=== PATIENT | female | born 1960 | race Caucasian/White ===

== ENCOUNTER → 2018-05-16 07:20 | Outpatient (CLI) | payer OTHER, MEDICAID, SELFPAY ==
--- NOTE | 2018-05-16 | DI.MRI.S_ITS ---
PROCEDURE: MR HEAD/BRAIN WO/W CON INDICATIONS: MILD COGNATIVE IMPAIRMENT TECHNIQUE: Noncontrast axial T1 spin echo, axial T2 fast spin echo, sagittal and axial FLAIR, coronal T2 fast spin echo, axial gradient echo, axial diffusion and ADC through the brain. After the administration of contrast, axial and coronal 3D VIBE or T1 spin echo with fat saturation through the brain. COMPARISON: [facility], MR, BRAIN W&W/O CONTRAST, 12/22/2013, 17:25. FINDINGS: Image quality: Excellent. CSF Spaces: Basal cisterns are patent. No extra-axial fluid collections. Ventricles are normal in size and shape. Brain: No midline shift. No intracranial bleeds or masses. No abnormal intracranial enhancement. The brainstem appears normal. Diffusion-weighted images demonstrate no acute ischemic insults. No chronic ischemic insults. Normal intravascular flow voids are present. Skull and face: Calvarial marrow is normal in signal. Orbits appear normal. Sinuses: Sinuses and mastoids appear clear. IMPRESSION: No acute intracranial abnormalities. Dictated by: Lavern Barbosa M.D. on 05/16/2018 at 9:35 Approved by: Lavern Barbosa M.D. on 05/16/2018 at 9:38
== END ==
PROVIDERS: Family Provider Internal Medicine; PCP Psychiatry & Neurology Neurology; Visit Provider Internal Medicine
DX: G31.84 Mild cognitive impairment of uncertain or unknown etiology (principal)
CPT/HCPCS: 70553; A9579

== ENCOUNTER 2018-11-10 15:22 | Emergency (ER) | payer OTHER, MEDICAID, SELFPAY ==
[2018-11-10 15:30] VITALS: BP 170/99; PULSE 65; RESP 18; TEMP 37.1; O2SAT 100; BMI 22.6
[2018-11-10 16:30] VITALS: BP 155/94; PULSE 54; O2SAT 100
--- NOTE | 2018-11-10 17:29 | ED.ALLEREA ---
HPI - Allergic Reaction <MANAV Wright - Last Filed: 11/10/18 22:31> General Chief complaint: Allergic Reaction Stated complaint: thinks she is having an allergic reaction to med Time Seen by Provider: 11/10/18 16:27 Source: patient Mode of arrival: ambulatory Limitations: no limitations History of Present Illness HPI narrative: 58-year-old healthy female that is a nonsmoker for complaint of nausea vomiting earlier today. She states she took a levofloxacin tablet that was prescribed to her by her primary care provider in case she got an infection while she was on [place] boat [place] long trips. She states she has never taken it before. She was concerned that she may have been started in ear infection so she took the antibiotic at today. Shortly afterwards she had 1 episode of vomiting. She reports having some pain into her left ear and some sinus congestion. She denies any nausea at this timeframe. She has some pain to her left lower quadrant area. No other concerns or complaints at this timeframe. No urinary symptoms. Last bowel movement was yesterday and was unremarkable. Related Data Allergies Allergy/AdvReac Type Severity Reaction Status Date / Time levofloxacin AdvReac Vomiting Verified 11/10/18 15:38 Review of Systems <MANAV Wright - Last Filed: 11/10/18 22:31> Constitutional Denies chills, Denies fever(s), Denies lethargy and Denies weakness Eyes Denies change in vision, Denies eye discharge, Denies irritation and Denies loss of vision ENT Ears, Nose, Mouth, and Throat: Denies change in voice, Denies neck pain and Denies sore throat Comments: Left ear pain Cardiovascular Denies chest pain, Denies irregular heart rhythm, Denies lightheadedness, Denies palpitations, Denies dyspnea, Denies dyspnea on exertion and Denies orthopnea Respiratory Denies cough, Denies dyspnea, Denies dyspnea on exertion and Denies wheezing Gastrointestinal Comments: Nausea vomiting and abdominal pain Genitourinary Denies hematuria, Denies flank pain, Denies urinary incontinence and Denies urinary urgency Musculoskeletal Denies neck pain Integumentary/Breasts Denies pruritus, Denies erythema, Denies rash and Denies wounds Neurologic Denies confusion, Denies loss of vision and Denies weakness Psychiatric Denies anxiety, Denies confusion, Denies depression, Denies homicidal ideation and Denies suicidal ideation Endocrine Denies palpitations Allergic/Immunologic Denies wheezing PFSH <MANAV Wright - Last Filed: 11/10/18 22:31> Social History Smoking Status: Never smoker Social History Smoking Status: Never smoker Exam <MANAV Wright - Last Filed: 11/10/18 22:31> Initial Vital Signs Initial Vital Signs: Vital Signs Temperature 98.8 F 11/10/18 15:30 Pulse Rate 65 11/10/18 15:30 Respiratory Rate 18 11/10/18 15:30 Blood Pressure 170/99 H 11/10/18 15:30 Pulse Oximetry 100 11/10/18 15:30 Const General: cooperative and well developed Nutritional Appearance: well nourished Orientation: alert, awake, oriented x3 and not confused HENMT Mouth: oral mucosae normal and moist mucous membranes Eyes Conjunctivae: conjunctivae normal Sclera: sclerae normal Pupils: PERRL EOM: EOM intact bilaterally Resp Effort & Inspection: normal respiratory effort, able to speak in complete sentences, no respiratory distress and no use of accessory muscles Auscultation: clear to auscultation bilaterally, no rales, no rhonchi and no wheezes Cardio Rate: regular rate Rhythm: regular rhythm Heart Sounds: no click, no gallops, no murmurs and no rubs Pulses: normal peripheral pulses Skin General: no rashes or lesions noted, No jaundice and No petechiae Neuro General: alert, oriented x3, gait normal and no focal motor deficits Speech: speech normal <Gisell Gonzalez MD - Last Filed: 11/14/18 12:19> Initial Vital Signs Initial Vital Signs: Vital Signs Temperature 98.8 F 11/10/18 15:30 Pulse Rate 65 11/10/18 15:30 Respiratory Rate 18 11/10/18 15:30 Blood Pressure 170/99 H 11/10/18 15:30 Pulse Oximetry 100 11/10/18 15:30 Course <MANAV Wright - Last Filed: 11/10/18 22:31> Orders Ordered: Discontinued Medications Sodium Chloride (Normal Saline 0.9%) 500 mls @ 1,000 mls/hr IV BOLUS ONE Stop: 11/10/18 18:08 Last Infusion: 11/10/18 19:26 Dose: 0 mls/hr Admin: 11/10/18 18:07 Dose: 1,000 mls/hr Vital Signs - 8 hr 11/10/18 15:30 11/10/18 16:30 11/10/18 19:50 Temperature 98.8 F Pulse Rate 65 54 L 61 Respiratory Rate 18 17 Blood Pressure 170/99 H Blood Pressure [Left Arm] 155/94 H 135/89 Pulse Oximetry 100 100 100 <Gisell Gonzalez MD - Last Filed: 11/14/18 12:19> Orders Ordered: Discontinued Medications Sodium Chloride (Normal Saline 0.9%) 500 mls @ 1,000 mls/hr IV BOLUS ONE Stop: 11/10/18 18:08 Last Infusion: 11/10/18 19:26 Dose: 0 mls/hr Admin: 11/10/18 18:07 Dose: 1,000 mls/hr Vital Signs - 8 hr 11/10/18 15:30 11/10/18 16:30 11/10/18 19:50 Temperature 98.8 F Pulse Rate 65 54 L 61 Respiratory Rate 18 17 Blood Pressure 170/99 H Blood Pressure [Left Arm] 155/94 H 135/89 Pulse Oximetry 100 100 100 MDM - Allergic Reaction <MANAV Wright - Last Filed: 11/10/18 22:31> Lab Data Result diagrams: 11/10/18 18:00 11/10/18 18:00 Lab Results 11/10/18 11/10/18 Range/Units 18:00 18:00 WBC 6.4 (4.5-11.0) X10^3/uL RBC 4.14 (4.0-5.2) X10^6/uL Hgb 12.9 (12.0-16.0) g/dL Hct 38.0 (36-46) % MCV 91.9 (80-100) fL MCH 31.2 (26-34) PG MCHC 33.9 (30-36) % RDW 13.0 (11.6-14.8) % Plt Count 85 L (150-400) X10^3/uL Neut % (Auto) 77.1 H (50-75) % Lymph % (Auto) 16.2 L (25-40) % Scurry % (Auto) 4.0 (3-14) % Eos % (Auto) 1.7 L (2-4) % Baso % (Auto) 1.0 (0-2) % Neut # (Auto) 4900 (9448-2152) /uL Lymph # (Auto) 1000 L (1886-9559) /uL Scurry # (Auto) 300 (0-900) /uL Eos # (Auto) 100 (0-450) /uL Baso # (Auto) 100 (0-100) /uL Sodium 138 (137-145) mmol/L Potassium 4.3 (3.4-5.1) mmol/L Chloride 104 (98-107) mmol/L Carbon Dioxide 23 (22-32) mmol/L BUN 20 H (7-17) mg/dL Creatinine 0.70 (0.52-1.04) mg/dL Estimated GFR > 60.0 (>60) mL/min BUN/Creatinine Ratio 28.6 H (6-22) Glucose 97 (70-100) mg/dL Calcium 9.2 (8.4-10.2) mg/dL Total Bilirubin 0.3 (0.2-1.3) mg/dL AST 27 (14-36) IU/L ALT 38 (9-52) IU/L Alkaline Phosphatase 34 L (38-126) U/L Total Protein 7.4 (6.3-8.2) g/dL Albumin 4.2 (3.5-5.0) g/dL Globulin 3.2 (1.7-4.1) g/dL Albumin/Globulin Ratio 1.3 (1.0-2.8) Lipase 72 (23-300) U/L Urine Dip Bedside Urine Glucose Negative Bedside Urine Bilirubin - Negative Bedside Urine Ketone +/- 5 Urine Specific [place] 1.015 Bedside Urine Occult Blood - Negative Bedside Urine pH 7.0 Bedside Urine Protein - Negative Bedside Urine Urobilinogen - Negative Bedside Urine Nitrite - Negative Bedside Urine Leukocytes - Negative Esterase Imaging Data CT scan - abdomen: Radiologist's impression: [address] [address] [address] Scan Report Signed Patient: Bridgette Rich LMR#: [id number] : 2Acct:[id number] Age/Sex: 58 / FDate of Service: 11/10/18 Loc: ED Accession Number: [id number] Procedure: CT abdomen pelvis w con Ordering Provider: Karan Patel PROCEDURE: CT ABDOMEN PELVIS W CON INDICATIONS: Nausea vomiting pain left lower quadrant TECHNIQUE: After the administration of intravenous contrast, 5 mm thick sections acquired from the diaphragm to the symphysis. 5 mm coronal and sagittal reformats were acquired. For radiation dose reduction, the following was used: automated exposure control, adjustment of mA and/or kV according to patient size. COMPARISON: None. FINDINGS: Image quality: Excellent. ABDOMEN: Lung bases: Lung bases are clear. Heart size is normal. Solid organs: Liver is normal in size and enhancement. Gallbladder is somewhat contracted. Biliary system is non dilated. Pancreas enhances normally. Spleen is normal in size and enhancement. No adrenal nodules. Kidneys demonstrate normal size and enhancement, without hydronephrosis. Peritoneum and bowel: Bowel loops demonstrate normal wall thickness and caliber. No free fluid or air. Large fecal debris. Nodes and vessels: No retroperitoneal or mesenteric adenopathy by size criteria. Aorta and inferior vena cava are normal in size. Miscellaneous: No ventral hernias. PELVIS: Genitourinary: Bladder wall thickness is normal. Metallic wires are present and both fallopian tubes. Miscellaneous: No inguinal hernias or adenopathy. Bones: No suspicious bony lesions. No vertebral body compression fractures. IMPRESSION: 1. Large fecal debris. 2. No evidence acute abdominal process. Dictated by: Kelton Naranjo M.D. on 11/10/2018 at 19:08 Approved by: Kelton Naranjo M.D. on 11/10/2018 at 19:11 [facility] Narrative Medical decision making narrative: CT scan of the abdomen was obtained and was negative for any acute findings with exception of some fecal loading. No signs of a bowel obstruction or ileus. Nausea vomiting most likely secondary to taking the Levaquin that. She did not appear to have an ear infection at this time. She is instructed not to take anymore antibiotics. Most likely her discomfort to her ear is due to serous otitis secondary to allergic rhinitis. Continue taking Flonase as prescribed. Follow up with primary care provider later this week for re-evaluation. She is instructed to take plenty of fluids any fiber to help with any constipation. For any worsening symptoms return emergency room. <Gisell Gonzalez MD - Last Filed: 11/14/18 12:19> Lab Data Lab Results 11/10/18 11/10/18 Range/Units 18:00 18:00 WBC 6.4 (4.5-11.0) X10^3/uL RBC 4.14 (4.0-5.2) X10^6/uL Hgb 12.9 (12.0-16.0) g/dL Hct 38.0 (36-46) % MCV 91.9 (80-100) fL MCH 31.2 (26-34) PG MCHC 33.9 (30-36) % RDW 13.0 (11.6-14.8) % Plt Count 85 L (150-400) X10^3/uL Neut % (Auto) 77.1 H (50-75) % Lymph % (Auto) 16.2 L (25-40) % Scurry % (Auto) 4.0 (3-14) % Eos % (Auto) 1.7 L (2-4) % Baso % (Auto) 1.0 (0-2) % Neut # (Auto) 4900 (3196-4886) /uL Lymph # (Auto) 1000 L (0316-3598) /uL Scurry # (Auto) 300 (0-900) /uL Eos # (Auto) 100 (0-450) /uL Baso # (Auto) 100 (0-100) /uL Sodium 138 (137-145) mmol/L Potassium 4.3 (3.4-5.1) mmol/L Chloride 104 (98-107) mmol/L Carbon Dioxide 23 (22-32) mmol/L BUN 20 H (7-17) mg/dL Creatinine 0.70 (0.52-1.04) mg/dL Estimated GFR > 60.0 (>60) mL/min BUN/Creatinine Ratio 28.6 H (6-22) Glucose 97 (70-100) mg/dL Calcium 9.2 (8.4-10.2) mg/dL Total Bilirubin 0.3 (0.2-1.3) mg/dL AST 27 (14-36) IU/L ALT 38 (9-52) IU/L Alkaline Phosphatase 34 L (38-126) U/L Total Protein 7.4 (6.3-8.2) g/dL Albumin 4.2 (3.5-5.0) g/dL Globulin 3.2 (1.7-4.1) g/dL Albumin/Globulin Ratio 1.3 (1.0-2.8) Lipase 72 (23-300) U/L Urine Dip Bedside Urine Glucose Negative Bedside Urine Bilirubin - Negative Bedside Urine Ketone +/- 5 Urine Specific [place] 1.015 Bedside Urine Occult Blood - Negative Bedside Urine pH 7.0 Bedside Urine Protein - Negative Bedside Urine Urobilinogen - Negative Bedside Urine Nitrite - Negative Bedside Urine Leukocytes - Negative Esterase Discharge Plan Departure Patient Disposition: Home Clinical Impression: Adverse reaction to drug Qualifiers: Encounter type: initial encounter Qualified Code(s): T50.905A - Adverse effect of unspecified drugs, medicaments and biological substances, initial encounter Allergic rhinitis Qualifiers: Allergic rhinitis trigger: other Allergic rhinitis seasonality: unspecified Qualified Code(s): J30.89 - Other allergic rhinitis Discharge Date/Time: 11/10/18 19:56 Interventions: ED Discharge Assessment Last Done: 11/10/18 19:56 Instructions: DI for Adverse Drug Reaction -- Allergic Activity Restrictions/Additional Instructions: Nausea vomiting most likely is secondary to the antibiotic use. CT scan of the abdomen shows no acute findings except for some stool loading. Recommended drinking plenty of fluids and using fiber to prevent constipation. Ear pain most likely secondary to seasonal allergies. Continue using Flonase as prescribed. No signs of ear infection is seen today. Use [id number] Tylenol or Motrin as needed for any discomfort. Follow up with her primary care provider. Return emergency room for any worsening symptoms Referrals: Fadumo Harding MD [Primary Care Provider] -
--- NOTE | 2018-11-10 17:40 | DI.CT.S_ITS ---
PROCEDURE: CT ABDOMEN PELVIS W CON INDICATIONS: Nausea vomiting pain left lower quadrant TECHNIQUE: After the administration of intravenous contrast, 5 mm thick sections acquired from the diaphragm to the symphysis. 5 mm coronal and sagittal reformats were acquired. For radiation dose reduction, the following was used: automated exposure control, adjustment of mA and/or kV according to patient size. COMPARISON: None. FINDINGS: Image quality: Excellent. ABDOMEN: Lung bases: Lung bases are clear. Heart size is normal. Solid organs: Liver is normal in size and enhancement. Gallbladder is somewhat contracted. Biliary system is non dilated. Pancreas enhances normally. Spleen is normal in size and enhancement. No adrenal nodules. Kidneys demonstrate normal size and enhancement, without hydronephrosis. Peritoneum and bowel: Bowel loops demonstrate normal wall thickness and caliber. No free fluid or air. Large fecal debris. Nodes and vessels: No retroperitoneal or mesenteric adenopathy by size criteria. Aorta and inferior vena cava are normal in size. Miscellaneous: No ventral hernias. PELVIS: Genitourinary: Bladder wall thickness is normal. Metallic wires are present and both fallopian tubes. Miscellaneous: No inguinal hernias or adenopathy. Bones: No suspicious bony lesions. No vertebral body compression fractures. IMPRESSION: 1. Large fecal debris. 2. No evidence acute abdominal process. Dictated by: Kelton Naranjo M.D. on 11/10/2018 at 19:08 Approved by: Kelton Naranjo M.D. on 11/10/2018 at 19:11
[2018-11-10] MEDS: SODIUM CHLORIDE 0.9% 500 ML 1000 ML IV (18:07)
[2018-11-10 18:20] LABS: Alanine Aminotransferase 38 IU/L (9-52); Albumin 4.2 g/dL (3.5-5.0); Albumin Globulin Ratio 1.3 (1.0-2.8); Alkaline Phosphatase 34 U/L (38-126); Aspartate Aminotransferase 27 IU/L (14-36); BUN Creatinine Ratio 28.6 (6-22); Bilirubin Total 0.3 mg/dL (0.2-1.3); Blood Urea Nitrogen 20 mg/dL (7-17); Calcium 9.2 mg/dL (8.4-10.2); Carbon Dioxide 23 mmol/L (22-32); Chloride 104 mmol/L (98-107); Estimated Glomerular Filt Rate > 60.0 mL/min (>60); Globulin 3.2 g/dL (1.7-4.1); Glucose 97 mg/dL (70-100); HEMOLYSIS 16 (0-50); Lipase 72 U/L (23-300); Potassium 4.3 mmol/L (3.4-5.1); Sodium 138 mmol/L (137-145); Total Protein 7.4 g/dL (6.3-8.2)
[2018-11-10 18:31] LABS: Add Manual Diff / Slide Review NO; Basophils Absolute Auto 100 /uL (0-100); Eosinophils Absolute Auto 100 /uL (0-450); Eosinophils Percent Auto 1.7 % (2-4); Hemoglobin 12.9 g/dL (12.0-16.0); Lymphocytes Absolute Auto 1000 /uL (1100-4500); Lymphocytes Percent Auto 16.2 % (25-40); Mean Corpuscular HGB Conc 33.9 % (30-36); Mean Corpuscular Hemoglobin 31.2 PG (26-34); Mean Corpuscular Volume 91.9 fL (80-100); Monocytes Absolute Auto 300 /uL (0-900); Neutrophils Absolute Auto 4900 /uL (1500-7000); Neutrophils Percent Auto 77.1 % (50-75); Platelet Count 85 X10^3/uL (150-400); Red Blood Cell Count 4.14 X10^6/uL (4.0-5.2); White Blood Cell Count 6.4 X10^3/uL (4.5-11.0)
--- NOTE | 2018-11-10 19:40 | ED_ITS ---
HPI - Allergic Reaction <MANAV Wright - Last Filed: 11/10/18 22:31> General Chief complaint: Allergic Reaction Stated complaint: thinks she is having an allergic reaction to med Time Seen by Provider: 11/10/18 16:27 Source: patient Mode of arrival: ambulatory Limitations: no limitations History of Present Illness HPI narrative: 58-year-old healthy female that is a nonsmoker for complaint of nausea vomiting earlier today. She states she took a levofloxacin tablet that was prescribed to her by her primary care provider in case she got an infection while she was on her boat for long trips. She states she has never taken it before. She was concerned that she may have been started in ear infection so she took the antibiotic at today. Shortly afterwards she had 1 episode of vomi ting. She reports having some pain into her left ear and some sinus congestion. She denies any nausea at this timeframe. She has some pain to her left lower quadrant area. No other concerns or complaints at this timeframe. No urinary symptoms. Last bowel movement was yesterday and was unremarkable. Related Data Allergies Allergy/AdvReac Type Severity Reaction Status Date / Time levofloxacin AdvReac Vomiting Verified 11/10/18 15:38 Review of Systems <MANAV Wright - Last Filed: 11/10/18 22:31> Constitutional Denies chills, Denies fever(s), Denies lethargy and Denies weakness Eyes Denies change in vision, Denies eye discharge, Denies irritation and Denies loss of vision ENT Ears, Nose, Mouth, and Throat: Denies change in voice, Denies neck pain and Denies sore throat Comments: Left ear pain Cardiovascular Denies chest pain, Denies irregular heart rhythm, Denies lightheadedness, Denies palpitations, Denies dyspnea, Denies dyspnea on exertion and Denies orthopnea Respiratory Denies cough, Denies dyspnea, Denies dyspnea on exertion and Denies wheezing Gastrointestinal Comments: Nausea vomiting and abdominal pain Genitourinary Denies hematuria, Denies flank pain, Denies urinary incontinence and Denies urinary urgency Musculoskeletal Denies neck pain Integumentary/Breasts Denies pruritus, Denies erythema, Denies rash and Denies wounds Neurologic Denies confusion, Denies loss of vision and Denies weakness Psychiatric Denies anxiety, Denies confusion, Denies depression, Denies homicidal ideation and Denies suicidal ideation Endocrine Denies palpitations Allergic/Immunologic Denies wheezing PFSH <MANAV Wright - Last Filed: 11/10/18 22:31> Social History Smoking Status: Never smoker Social History Smoking Status: Never smoker Exam <MANAV Wright - Last Filed: 11/10/18 22:31> Initial Vital Signs Initial Vital Signs: Vital Signs Temperature 98.8 F 11/10/18 15:30 Pulse Rate 65 11/10/18 15:30 Respiratory Rate 18 11/10/18 15:30 Blood Pressure 170/99 H 11/10/18 15:30 Pulse Oximetry 100 11/10/18 15:30 Const General: cooperative and well developed Nutritional Appearance: well nourished Orientation: alert, awake, oriented x3 and not confused HENMT Mouth: oral mucosae normal and moist mucous membranes Eyes Conjunctivae: conjunctivae normal Sclera: sclerae normal Pupils: PERRL EOM: EOM intact bilaterally Resp Effort & Inspection: normal respiratory effort, able to speak in complete sentences, no respiratory distress and no use of accessory muscles Auscultation: clear to auscultation bilaterally, no rales, no rhonchi and no wheezes Cardio Rate: regular rate Rhythm: regular rhythm Heart Sounds: no click, no gallops, no murmurs and no rubs Pulses: normal peripheral pulses Skin General: no rashes or lesions noted, No jaundice and No petechiae Neuro General: alert, oriented x3, gait normal and no focal motor deficits Speech: speech normal <Gisell Gonzalez MD - Last Filed: 11/14/18 12:19> Initial Vital Signs Initial Vital Signs: Vital Signs Temperature 98.8 F 11/10/18 15:30 Pulse Rate 65 11/10/18 15:30 Respiratory Rate 18 11/10/18 15:30 Blood Pressure 170/99 H 11/10/18 15:30 Pulse Oximetry 100 11/10/18 15:30 Course <MANAV Wright - Last Filed: 11/10/18 22:31> Orders Ordered: Discontinued Medications Sodium Chloride (Normal Saline 0.9%) 500 mls @ 1,000 mls/hr IV BOLUS ONE Stop: 11/10/18 18:08 Last Infusion: 11/10/18 19:26 Dose: 0 mls/hr Admin: 11/10/18 18:07 Dose: 1,000 mls/hr Vital Signs - 8 hr 11/10/18 15:30 11/10/18 16:30 11/10/18 19:50 Temperature 98.8 F Pulse Rate 65 54 L 61 Respiratory Rate 18 17 Blood Pressure 170/99 H Blood Pressure [Left Arm] 155/94 H 135/89 Pulse Oximetry 100 100 100 <Gisell Gonzalez MD - Last Filed: 11/14/18 12:19> Orders Ordered: Discontinued Medications Sodium Chloride (Normal Saline 0.9%) 500 mls @ 1,000 mls/hr IV BOLUS ONE Stop: 11/10/18 18:08 Last Infusion: 11/10/18 19:26 Dose: 0 mls/hr Admin: 11/10/18 18:07 Dose: 1,000 mls/hr Vital Signs - 8 hr 11/10/18 15:30 11/10/18 16:30 11/10/18 19:50 Temperature 98.8 F Pulse Rate 65 54 L 61 Respiratory Rate 18 17 Blood Pressure 170/99 H Blood Pressure [Left Arm] 155/94 H 135/89 Pulse Oximetry 100 100 100 MDM - Allergic Reaction <MANAV Wright - Last Filed: 11/10/18 22:31> Lab Data Result diagrams: 11/10/18 18:00 11/10/18 18:00 Lab Results 11/10/18 11/10/18 Range/Units 18:00 18:00 WBC 6.4 (4.5-11.0) X10^3/uL RBC 4.14 (4.0-5.2) X10^6/uL Hgb 12.9 (12.0-16.0) g/dL Hct 38.0 (36-46) % MCV 91.9 (80-100) fL MCH 31.2 (26-34) PG MCHC 33.9 (30-36) % RDW 13.0 (11.6-14.8) % Plt Count 85 L (150-400) X10^3/uL Neut % (Auto) 77.1 H (50-75) % Lymph % (Auto) 16.2 L (25-40) % [place] % (Auto) 4.0 (3-14) % Eos % (Auto) 1.7 L (2-4) % Baso % (Auto) 1.0 (0-2) % Neut # (Auto) 4900 (5162-3746) /uL Lymph # (Auto) 1000 L (2788-3469) /uL [place] # (Auto) 300 (0-900) /uL Eos # (Auto) 100 (0-450) /uL Baso # (Auto) 100 (0-100) /uL Sodium 138 (137-145) mmol/L Potassium 4.3 (3.4-5.1) mmol/L Chloride 104 (98-107) mmol/L Carbon Dioxide 23 (22-32) mmol/L BUN 20 H (7-17) mg/dL Creatinine 0.70 (0.52-1.04) mg/dL Estimated GFR > 60.0 (>60) mL/min BUN/Creatinine Ratio 28.6 H (6-22) Glucose 97 (70-100) mg/dL Calcium 9.2 (8.4-10.2) mg/dL Total Bilirubin 0.3 (0.2-1.3) mg/dL AST 27 (14-36) IU/L ALT 38 (9-52) IU/L Alkaline Phosphatase 34 L (38-126) U/L Total Protein 7.4 (6.3-8.2) g/dL Albumin 4.2 (3.5-5.0) g/dL Globulin 3.2 (1.7-4.1) g/dL Albumin/Globulin Ratio 1.3 (1.0-2.8) Lipase 72 (23-300) U/L Urine Dip Bedside Urine Glucose Negative Bedside Urine Bilirubin - Negative Bedside Urine Ketone +/- 5 Urine Specific [place] 1.015 Bedside Urine Occult Blood - Negative Bedside Urine pH 7.0 Bedside Urine Protein - Negative Bedside Urine Urobilinogen - Negative Bedside Urine Nitrite - Negative Bedside Urine Leukocytes - Negative Esterase Imaging Data CT scan - abdomen: Radiologist's impression: [address] [address] [address] Scan Report Signed Patient: Bridgette Rich LMR#: [id number] : 2Acct:[id number] Age/Sex: 58 / FDate of Service: 11/10/18 Loc: ED Accession Number: [id number] Procedure: CT abdomen pelvis w con Ordering Provider: Karan Patel PROCEDURE: CT ABDOMEN PELVIS W CON INDICATIONS: Nausea vomiting pain left lower quadrant TECHNIQUE: After the administration of intravenous contrast, 5 mm thick sections acquired from the diaphragm to the symphysis. 5 mm coronal and sagittal reformats were acquired. For radiation dose reduction, the following was used: automated exposure control, adjustment of mA and/or kV according to patient size. COMPARISON: None. FINDINGS: Image quality: Excellent. ABDOMEN: Lung bases: Lung bases are clear. Heart size is normal. Solid organs: Liver is normal in size and enhancement. Gallbladder is somewhat contracted. Biliary system is non dilated. Pancreas enhances normally. Spleen is normal in size and enhancement. No adrenal nodules. Kidneys demonstrate normal size and enhancement, without hydronephrosis. Peritoneum and bowel: Bowel loops demonstrate normal wall thickness and caliber. No free fluid or air. Large fecal debris. Nodes and vessels: No retroperitoneal or mesenteric adenopathy by size criteria. Aorta and inferior vena cava are normal in size. Miscellaneous: No ventral hernias. PELVIS: Genitourinary: Bladder wall thickness is normal. Metallic wires are present and both fallopian tubes. Miscellaneous: No inguinal hernias or adenopathy. Bones: No suspicious bony lesions. No vertebral body compression fractures. IMPRESSION: 1. Large fecal debris. 2. No evidence acute abdominal process. Dictated by: Kelton Naranjo M.D. on 11/10/2018 at 19:08 Approved by: Kelton Naranjo M.D. on 11/10/2018 at 19:11 [facility] Narrative Medical decision making narrative: CT scan of the abdomen was obtained and was negative for any acute findings with exception of some fecal loading. No signs of a bowel obstruction or ileus. Nausea vomiting most likely secondary to taking the Levaquin that. She did not appear to have an ear infection at this time. She is instructed not to take anymore antibiotics. Most likely her discomfort to her ear is due to serous otitis secondary to allergic rhinitis. Continue taking Flonase as prescribed. Follow up with primary care provider later this week for re-evaluation. She is instructed to take plenty of fluids any fiber to help with any constipation. For any worsening symptoms return emergency room. <Gisell Gonzalez MD - Last Filed: 11/14/18 12:19> Lab Data Lab Results 11/10/18 11/10/18 Range/Units 18:00 18:00 WBC 6.4 (4.5-11.0) X10^3/uL RBC 4.14 (4.0-5.2) X10^6/uL Hgb 12.9 (12.0-16.0) g/dL Hct 38.0 (36-46) % MCV 91.9 (80-100) fL MCH 31.2 (26-34) PG MCHC 33.9 (30-36) % RDW 13.0 (11.6-14.8) % Plt Count 85 L (150-400) X10^3/uL Neut % (Auto) 77.1 H (50-75) % Lymph % (Auto) 16.2 L (25-40) % [place] % (Auto) 4.0 (3-14) % Eos % (Auto) 1.7 L (2-4) % Baso % (Auto) 1.0 (0-2) % Neut # (Auto) 4900 (2154-2806) /uL Lymph # (Auto) 1000 L (9112-7043) /uL [place] # (Auto) 300 (0-900) /uL Eos # (Auto) 100 (0-450) /uL Baso # (Auto) 100 (0-100) /uL Sodium 138 (137-145) mmol/L Potassium 4.3 (3.4-5.1) mmol/L Chloride 104 (98-107) mmol/L Carbon Dioxide 23 (22-32) mmol/L BUN 20 H (7-17) mg/dL Creatinine 0.70 (0.52-1.04) mg/dL Estimated GFR > 60.0 (>60) mL/min BUN/Creatinine Ratio 28.6 H (6-22) Glucose 97 (70-100) mg/dL Calcium 9.2 (8.4-10.2) mg/dL Total Bilirubin 0.3 (0.2-1.3) mg/dL AST 27 (14-36) IU/L ALT 38 (9-52) IU/L Alkaline Phosphatase 34 L (38-126) U/L Total Protein 7.4 (6.3-8.2) g/dL Albumin 4.2 (3.5-5.0) g/dL Globulin 3.2 (1.7-4.1) g/dL Albumin/Globulin Ratio 1.3 (1.0-2.8) Lipase 72 (23-300) U/L Urine Dip Bedside Urine Glucose Negative Bedside Urine Bilirubin - Negative Bedside Urine Ketone +/- 5 Urine Specific [place] 1.015 Bedside Urine Occult Blood - Negative Bedside Urine pH 7.0 Bedside Urine Protein - Negative Bedside Urine Urobilinogen - Negative Bedside Urine Nitrite - Negative Bedside Urine Leukocytes - Negative Esterase Discharge Plan Departure Patient Disposition: Home Clinical Impression: Adverse reaction to drug Qualifiers: Encounter type: initial encounter Qualified Code(s): T50.905A - Adverse effect of unspecified drugs, medicaments and biological substances, initial encounter Allergic rhinitis Qualifiers: Allergic rhinitis trigger: other Allergic rhinitis seasonality: unspecified Qualified Code(s): J30.89 - Other allergic rhinitis Discharge Date/Time: 11/10/18 19:56 Interventions: ED Discharge Assessment Last Done: 11/10/18 19:56 Instructions: DI for Adverse Drug Reaction -- Allergic Activity Restrictions/Additional Instructions: Nausea vomiting most likely is secondary to the antibiotic use. CT scan of the abdomen shows no acute findings except for some stool loading. Recommended drinking plenty of fluids and using fiber to prevent constipation. Ear pain most likely secondary to seasonal allergies. Continue using Flonase as prescribed. No signs of ear infection is seen today. Use [id number] Tylenol or Motrin as needed for any discomfort. Follow up with her primary care provider. Return emergency room for any worsening symptoms Referrals: Fadumo Harding MD [Primary Care Provider] -
[2018-11-10 19:50] VITALS: BP 135/89; PULSE 61; RESP 17; O2SAT 100
== END 2018-11-10 19:56 | disposition home or self-care (01) ==
PROVIDERS: Emergency Provider Nurse Practitioner Family; Family Provider Internal Medicine; PCP Psychiatry & Neurology Neurology
DX: T36.8X5A Adverse effect of other systemic antibiotics, initial encounter (principal); J30.89 Other allergic rhinitis
CPT/HCPCS: 36591; 74177; 80053; 81003; 83690; 85025; 96360; 99283; 99285; Q9967

== ENCOUNTER → 2018-11-26 12:40 | Outpatient (CLI) | payer OTHER, MEDICAID, SELFPAY ==
--- NOTE | 2018-11-26 | DI.CT.S_ITS ---
PROCEDURE: CT SINUS SCREEN WO CON INDICATIONS: Chronic sinusitis, unspecified TECHNIQUE: Noncontrast 3.0 mm axial images acquired from the frontal sinuses to the mid-sella, with coronal and sagittal reformats. For radiation dose reduction, the following was used: automated exposure control, adjustment of mA and/or kV according to patient size. COMPARISON: [facility], CT, HEAD WITHOUT CONTRAST, 09/26/2013, 16:11. [facility], MR, MR HEAD/BRAIN WO/W CON, 05/16/2018, 7:45. FINDINGS: Image quality: Excellent. Maxillary Sinuses: No bony remodeling or destruction. Sinuses are clear. Ethmoid Air Cells: No bony remodeling or destruction. Sinuses are clear. Sphenoid Sinuses: No bony remodeling or destruction. Sinuses are clear. Frontal Sinuses: No bony remodeling or destruction. Sinuses are clear. The left frontal sinus is poorly developed. Ostiomeatal Complexes: Ostiomeatal complexes are patent. No Ivette cells. Miscellaneous: Visualized intra-orbital contents are normal. There are bilateral иирна bullosa. There is mild leftward nasal septal deviation. IMPRESSION: No significant active paranasal sinus disease is seen. Benign, incidental anatomic variants described above. Dictated by: Aly Hermosillo M.D. on 11/26/2018 at 12:10 Approved by: Aly Hermosillo M.D. on 11/26/2018 at 12:11
== END ==
PROVIDERS: PCP Internal Medicine; Visit Provider Internal Medicine
DX: J32.9 Chronic sinusitis, unspecified (principal); J34.2 Deviated nasal septum; J34.3 Hypertrophy of nasal turbinates
CPT/HCPCS: 70486

== ENCOUNTER → 2018-12-11 09:37 | Outpatient (CLI) | payer OTHER, MEDICAID, SELFPAY ==
--- NOTE | 2018-12-11 | DI.RAD.S_ITS ---
PROCEDURE: XR CERVICAL SPINE 2V OR 3V INDICATIONS: SPIANAL PAIN TECHNIQUE: 3 view(s) of the cervical spine were acquired. COMPARISON: None. FINDINGS: Bones: No fractures or dislocations to the T1 level. The lateral masses of C1 appear intact on the odontoid view. No suspicious bony lesions. Degenerative disc disease is moderate to moderately severe along the mid and lower cervical spine with disc height reduction and osteophyte formation projecting both anteriorly and posteriorly. Facet osteoarthritis appears moderate over these areas also, and there likely is significant spinal and foraminal stenosis, without subluxation. Soft tissues: No prevertebral soft tissue swelling. IMPRESSION: Moderate to moderately severe degenerative disc disease and facet osteoarthritis along the middle and lower thirds of the cervical spine with expected spinal and foraminal stenosis. Dictated by: Padilla Kwok M.D. on 12/11/2018 at 10:45 Approved by: Padilla Kwok M.D. on 12/11/2018 at 10:46
== END ==
PROVIDERS: PCP Internal Medicine; Visit Provider Internal Medicine
DX: M50.320 Other cervical disc degeneration, mid-cervical region, unspecified level (principal); M47.812 Spondylosis without myelopathy or radiculopathy, cervical region
CPT/HCPCS: 72040

== ENCOUNTER → 2019-04-04 14:51 | Outpatient (CLI) | payer OTHER, MEDICAID, SELFPAY ==
--- NOTE | 2019-04-04 14:59 | DI.RAD.S_ITS ---
PROCEDURE: XR LUMBAR SPINE MIN 4V INDICATIONS: LOW BACK PAIN TECHNIQUE: 5 views of the lumbar spine acquired. COMPARISON: None. FINDINGS: Bones: No fracture or focal osseous destruction. Grade 1 retrolisthesis of L2 on L3. Multilevel degenerative endplate sclerosis and spurring. Diffuse facet arthropathy. Severe narrowing of L5-S1 disc space. Grade 1 anterolisthesis of L4 on L5. Moderate narrowing of the remaining lumbar disc spaces. Mild levocurvature centered at L3. No evidence of abnormal motion with dynamic flexion and extension lateral views. Soft tissues: Overlying bowel gas pattern is normal. No suspicious soft tissue calcifications. IMPRESSION: Multilevel lumbar spondylosis and facet arthropathy, most pronounced L5-S1. Mild levocurvature. No evidence of abnormal motion with dynamic flexion and extension lateral views. Dictated by: Rayo Landa M.D. on 04/04/2019 at 15:38 Approved by: Rayo Landa M.D. on 04/04/2019 at 15:40
== END ==
PROVIDERS: PCP Internal Medicine; Visit Provider Internal Medicine
DX: M54.5 Low back pain (principal); M47.817 Spondylosis without myelopathy or radiculopathy, lumbosacral region
CPT/HCPCS: 72110

== ENCOUNTER → 2019-08-15 13:41 | Outpatient (CLI) | payer OTHER, MEDICAID, SELFPAY ==
--- NOTE | 2019-08-15 13:43 | DI.MRI.S_ITS ---
PROCEDURE: MR CERVICAL SPINE WO CON INDICATIONS: Progressive neck pain upper extremity paresthesias TECHNIQUE: Noncontrast sagittal T1 spin echo and T2 fast spin echo, sagittal STIR, foraminal oblique sagittal T2 fast spin echo, and axial gradient echo or T2 fast spin echo through the cervical spine. COMPARISON: None. FINDINGS: Image quality: Excellent. Alignment and Curvature: There is normal bony alignment. Bone Marrow: Multilevel degenerative endplate sclerosis and spurring. Diffuse facet arthropathy. No fracture. Spinal Cord: Visualized spinal cord has normal size and signal. Incidental low-lying cerebellar tonsils image 6/. Paraspinous Soft Tissues: No paravertebral masses. Prevertebral soft tissues are normal in thickness. C2-C3: Normal appearance. C3-C4: Minimal central canal narrowing. Mild right foraminal stenosis. Severe left foraminal stenosis with nerve root compression C4-C5: Minimal central canal narrowing. Moderate right foraminal stenosis with nerve root compression. Mild to moderate left foraminal stenosis with slight nerve root compression C5-C6: Minimal central canal narrowing. Mild right foraminal stenosis. Severe left foraminal stenosis with nerve root compression C6-C7: Minimal central canal narrowing. Mild right foraminal stenosis. Moderate left foraminal narrowing with nerve root compression. C7-T1: Normal appearance. IMPRESSION: Multilevel cervical spondylosis and facet disease with no high-grade central canal narrowing. Diffuse multiple bilateral foraminal stenoses as detailed above by spinal level Dictated by: Rayo Landa M.D. on 08/18/2019 at 9:16 Approved by: Rayo Landa M.D. on 08/18/2019 at 9:23
--- NOTE | 2019-08-15 13:43 | DI.MRI.S_ITS ---
PROCEDURE: MR LUMBAR SPINE WO CON INDICATIONS: Progressive neck pain upper extremity paresthesias TECHNIQUE: Noncontrast sagittal T1 spin echo and T2 fast echo, sagittal STIR, axial T1 and T2 fast spin echo through the lumbar spine. In cases with scoliosis, additional coronal T2 fast spin echo may be performed. COMPARISON: None. FINDINGS: Image quality: Excellent. Alignment and Curvature: There is minimal retrolisthesis of L2 on L3 and minimal anterolisthesis of L4 and L5. Bone Marrow: Marrow is of normal overall signal. No acute vertebral body compression fractures. Spinal Cord: Conus medullaris terminates at the T12-L1 level. Visualized cord demonstrates normal signal and size. Paraspinous Soft Tissues: No paravertebral masses. L1-L2: Normal appearance. L2-L3: Decreased intervertebral disc space is seen. No significant disc bulge, canal stenosis or neuroforaminal narrowing. L3-L4: Decreased intervertebral disc space is seen. Broad-based disc bulge and bilateral facet arthrosis is seen with mild central canal stenosis and mild left-sided neuroforaminal narrowing. L4-L5: There is decreased intervertebral disc space. Broad-based disc bulge and bilateral facet arthrosis with hypertrophy of ligamentum flavum is seen causing moderate central canal stenosis and bilateral neuroforaminal narrowing. There is likely compression of bilateral exiting L4 nerve roots. L5-S1: Decreased intervertebral disc space is seen. A broad-based disc bulge and bilateral facet arthrosis is noted with mild central canal stenosis and bilateral neuroforaminal narrowing. IMPRESSION: 1. Minimal retrolisthesis at L2-3 level and minimal anterolisthesis at L4-5 level. No marrow edema. No acute compression fracture. 2. Degenerative disc bulge and bilateral facet arthrosis at L2-3 through L5-S1 levels causing mild to moderate central canal stenosis and bilateral neuroforaminal narrowing most prominent at L4-5 level as described above. Dictated by: Kishan Valenzuela M.D. on 08/15/2019 at 16:12 Approved by: Kishan Valenzuela M.D. on 08/15/2019 at 16:19
== END ==
PROVIDERS: PCP Internal Medicine; Visit Provider Physical Medicine & Rehabilitation
DX: M54.2 Cervicalgia (principal); M47.22 Other spondylosis with radiculopathy, cervical region; M48.02 Spinal stenosis, cervical region; M47.26 Other spondylosis with radiculopathy, lumbar region; M47.27 Other spondylosis with radiculopathy, lumbosacral region; M51.16 Intervertebral disc disorders with radiculopathy, lumbar region; M51.17 Intervertebral disc disorders with radiculopathy, lumbosacral region; M48.061 Spinal stenosis, lumbar region without neurogenic claudication; M41.9 Scoliosis, unspecified; R20.2 Paresthesia of skin
CPT/HCPCS: 72141; 72148

== ENCOUNTER → 2019-09-25 10:57 | Outpatient (CLI) | payer OTHER, MEDICAID, SELFPAY | PROVIDERS: PCP Internal Medicine; Visit Provider Physical Medicine & Rehabilitation | DX: G56.00 Carpal tunnel syndrome, unspecified upper limb (principal); M47.22 Other spondylosis with radiculopathy, cervical region | CPT/HCPCS: 95886; 95911 ==

== ENCOUNTER → 2019-10-15 08:49 | Outpatient (CLI) | payer OTHER, MEDICAID, SELFPAY ==
[2019-10-15 09:35] LABS: Appearance Urine UA CLEAR; Bilirubin Urine UA NEGATIVE (NEGATIVE); Color Urine UA YELLOW; Glucose Urine UA NEGATIVE (Negative); Ketones Urine UA NEGATIVE (NEGATIVE); Leukocyte Esterase Urine UA NEGATIVE (NEGATIVE); Nitrite Urine UA NEGATIVE (Negative); Occult Blood Urine UA NEGATIVE (Negative); Protein Urine UA NEGATIVE (Negative); Urobilinogen Urine UA 0.2 E.U./dL (0.2); pH Urine UA 6.5 (4.5-8.0)
[2019-10-15 10:18] LABS: Hematocrit 40.4 % (36-46); Hemoglobin 13.8 g/dL (12.0-16.0); Mean Corpuscular HGB Conc 34.1 % (30-36); Mean Corpuscular Hemoglobin 32.3 PG (26-34); Mean Corpuscular Volume 94.7 fL (80-100); Platelet Count 183 X10^3/uL (150-400); Red Blood Cell Count 4.27 X10^6/uL (4.0-5.2); Red Cell Distribution Width 12.7 % (11.6-14.8); White Blood Cell Count 4.2 X10^3/uL (4.5-11.0)
[2019-10-15 10:47] LABS: Alanine Aminotransferase 14 IU/L (<35); Albumin 4.3 g/dL (3.5-5.0); Albumin Globulin Ratio 1.3 (1.0-2.8); Alkaline Phosphatase 33 U/L (38-126); Aspartate Aminotransferase 24 IU/L (14-36); Bilirubin Total 0.5 mg/dL (0.2-1.3); Blood Urea Nitrogen 16 mg/dL (7-17); Calcium 9.4 mg/dL (8.4-10.2); Carbon Dioxide 27 mmol/L (22-32); Chloride 105 mmol/L (98-107); Cholesterol 198 mg/dL (140-199); Estimated Glomerular Filt Rate > 60.0 mL/min (>60); Globulin 3.3 g/dL (1.7-4.1); Glucose 83 mg/dL (70-100); HDL Cholesterol 65 mg/dL (40-60); HEMOLYSIS < 15 (0-50); LDL Cholesterol Calculated 117 mg/dL (<100); Potassium 3.9 mmol/L (3.4-5.1); Sodium 142 mmol/L (137-145); Total Protein 7.6 g/dL (6.3-8.2); Triglycerides 78 mg/dL (35-150)
[2019-10-15 10:53] LABS: Vitamin D 25 Hydroxy (D3) 36.9 ng/mL (30.0-100.0)
[2019-10-15 11:01] LABS: Neutrophils Absolute Manual 1344 /uL (3000-5900); RBC Morphology Normal Morphology; Total Cells Counted 100
[2019-10-15 11:14] LABS: TSH w/ Reflex to FT4 1.61 uIU/mL (0.47-4.68)
== END ==
PROVIDERS: PCP Internal Medicine; Referring Provider Internal Medicine; Visit Provider Internal Medicine
DX: R51 Headache (principal); R42 Dizziness and giddiness; E03.9 Hypothyroidism, unspecified; G31.84 Mild cognitive impairment of uncertain or unknown etiology; N95.1 Menopausal and female climacteric states; E34.8 Other specified endocrine disorders; I67.89 Other cerebrovascular disease; E53.8 Deficiency of other specified B group vitamins; E83.42 Hypomagnesemia; G47.00 Insomnia, unspecified
CPT/HCPCS: 36415; 80053; 80061; 81003; 82306; 84443; 85025

== ENCOUNTER 2019-10-23 08:25 | Outpatient (CLI) | payer OTHER, MEDICAID, SELFPAY ==
[2019-10-23] VITALS (8 sets, daily range): BP systolic 109–142; BP diastolic 73–98; PULSE 55–65; RESP 16–18; TEMP 36.1; O2SAT 98–100
--- NOTE | 2019-10-23 08:26 | DI.RAD.S_ITS ---
PROCEDURE: PAIN C/T INTERLAMINAR INJECT INDICATIONS: SPONDYLOSIS FINDINGS: Fluoroscopic spot filming was performed to verify placement of spinal needles at the C5-C6 level(s), as labeled on the films. Appropriate location(s) of the needle tip(s) was confirmed by injection of iodinated contrast. IMPRESSION: Fluoroscopy for pain management. Dictated by: Lavern Barbosa M.D. on 10/23/2019 at 11:21 Approved by: Lavern Barbosa M.D. on 10/23/2019 at 11:21
[2019-10-23] MEDS: MIDAZOLAM 5 MG/5 ML VIAL IV (09:23)
[2019-10-23] MEDS: fentaNYL 100 MCG/2 ML INJ 50 MCG IV (09:23)
[2019-10-23] MEDS: DEXAMETHASONE 10 MG/ML VIAL 20 MG INJ (09:29)
[2019-10-23] MEDS: BUPIVACAINE 0.25% (PF) VIAL 2 ML INJ (09:29)
[2019-10-23] MEDS: IOPAMIDOL 15 ML VIAL 3 ML INJ (09:29)
--- NOTE | 2019-10-23 09:33 | PC.NURSE ---
ASSISTING PT OFF TABLE AND TRANSPORTING TO POST PROC AREA IN STABLE CONDITION. PASSING RN CARE OF PT OFF TO ERICA Davis RN.
--- NOTE | 2019-10-23 09:41 | P.PCN_ITS ---
Procedures Date/Time Date of procedure: 10/23/19 Time of procedure: 09:41 General Procedure description: PREOP DIAGNOSIS 1. CERVICAL STENOSIS, 2. CERVICAL HNP WITH UPPER EXTREMITY RADICULAR FEATURES, POST OP DIAGNOSIS 1. CERVICAL STENOSIS, 2. CERVICAL HNP WITH UPPER EXTREMITY RADICULAR FEATURES, PROCEDURES 1. FLUORSCOPICALLY GUIDED CONTRAST CONTROLLED INTERLAMINAR EPIDURAL STEROID INJECTION - C5/6 TL EVON PHYSICIAN: Quang Elmore DO INDICATIONS Bridgette is referred by Dr. Patel for treatment of Cervical HNP with Upper Extremity Paresthesias. FINDINGS Cervical Stenosis due to disc deterioration and nerve root irritation and nerve root irritation DESCRIPTION OF PROCEDURE Fluoroscopically guided, contrast-controlled C5/6 translaminar epidural steroid injection with conscious sedation. Following review of allergy and review of potential side effects and complications, including, but not necessarily limited to, infection, allergic reaction, local tissue breakdown, temporary as well as permanent nerve injury, stroke, paralysis, and possible , the patient indicated that patient understood and agreed to proceed. An informed consent document was signed by the patient, witnessed by a nurse, and placed in the patient's chart. Additionally, other treatment options including modalities, medications, and physical therapy were reviewed with the patient. After review of previous anaesthesic history and IV conscious sedation the patient was deemed safe to proceed with todays procedure with IV conscious sedation as ASA class II designation. Safety time-out was performed to confirm patient ID, procedure to be performed and site of procedure. IV sedation was accomplished with a combination of 2mg of Versed and 50mcg of Fentanyl administered by the RN after DO order, titrated to patient comfort during the course of the procedure while the patient remained responsive to all verbal commands. In the prone position, following sterile prep and drape of the cervical region, the C5/6 translaminar space was identified fluoroscopically. The skin was anesthetized via a 25-gauge 1.5-inch needle with 1% lidocaine solution. At this point, a 25-gauge, 2.5-inch short bevel spinal needle was atraumatically in troduced and advanced under fluoroscopic guidance into epidural space at the C5/6 translaminar space. Depth was confirmed on lateral view. Radiological data, including multiple fluoroscopic views of the cervical spine, reveal a spinal needle at the C5/6 translaminar space. Lateral views then show placement of the needle in the epidural space. Subsequent views show contrast material flowing superiorly and inferiorly in the epidural space. DSA fluoroscopy with live contrast injection, once again, confirmed no vascular or intrathecal uptake. At this point, using loss of resistance technique with saline and air, the epidural space was entered. Following negative aspiration, injection of approximately 1.5 cc of Isovue-200 with live fluoroscopy in the AP view confirmed epidural flow in the epidural space without vascular or intrathecal uptake observed. Subsequently, a test dose of 1 cc of 0.25% marcaine solution was injected and patient was observed for two minutes without signs or symptoms of complications, including abdominal pain, shortness of breath, bilateral upper or lower extremity weakness, nausea and vomiting, prior to steroid injection. At this point, 2cc or 20mg of dexamethasone was then injected without incident. The patient tolerated the procedure well without signs or symptoms of complications prior to being transferred to the recovery area for further mon itoring, The patient was then transferred to the recovery area where they were observed for an appropriate period of time after the injection. The patient reported a VAS score of 6 prior to the procedure and a post-procedure VAS of 0. Total Fluoroscopy Time: 14 seconds Total Conscious Time: 24min POST OP INSTRUCTIONS The patient was provided a Pain Log to continue to record their response to the target-specific procedure prior to follow-up visit with the referring provider. Additionally, specific post-injection care instructions and a contact number to our office were provided if concerns arise regarding possible complications associated with the procedure are suspected. Quang Elmore DO Complications: none
--- NOTE | 2019-10-23 10:29 | PC.NURSE ---
at 0939 returned from procedure via w/c, able to transfer self to recliner, snacks provided and tolerated. pain free with reassessment. assumed care from
== END 2019-10-23 10:00 | disposition home or self-care (01) ==
LOC: RAD 08:26
PROVIDERS: PCP Internal Medicine; Referring Provider Internal Medicine; Visit Provider Physical Medicine & Rehabilitation
DX: M47.22 Other spondylosis with radiculopathy, cervical region (principal); M50.122 Cervical disc disorder at C5-C6 level with radiculopathy
CPT/HCPCS: 62321; 99152; J1100; J2250; J3010

== ENCOUNTER → 2019-11-14 08:31 | Outpatient (CLI) | payer OTHER, MEDICAID, SELFPAY ==
[2019-11-14 09:20] LABS: Eosinophils Absolute Auto 400 /uL (0-450); Eosinophils Percent Auto 11.4 % (2-4); White Blood Cell Count 3.9 X10^3/uL (4.5-11.0)
[2019-11-17 20:48] LABS: Immunoglobulin E 9 IU/mL (6-495)
[2019-11-18 13:09] LABS: Immunoglobulin A, Serum 147 mg/dL (87-352); Immunoglobulin G,Serum 1187 mg/dL (700-1600); Immunoglobulin M, Serum 29 mg/dL (26-217)
[2019-11-18 14:36] LABS: Albumin 3.6 g/dL (2.9-4.4); Alpha-1-Globulin 0.2 g/dL (0.0-0.4); Alpha-2-Globulin 0.6 g/dL (0.4-1.0); Gamma Globulin 1.1 g/dL (0.4-1.8); Globulin Total 2.9 g/dL (2.2-3.9); Protein, Total 6.5 g/dL (6.0-8.5)
--- NOTE | 2019-12-04 11:55 | ONC.MSW ---
Description: New Referral Navigation Activity: Reviewed pt's referral for acuity, medical status and immediate needs. Forwarded to scheduling for next available initial visit time.
== END ==
PROVIDERS: PCP Internal Medicine; Referring Provider Physician Assistant; Visit Provider Physician Assistant
DX: D72.1 Eosinophilia (principal); D70.8 Other neutropenia; D72.824 Basophilia; M30.1 Polyarteritis with lung involvement [Churg-Strauss]
CPT/HCPCS: 36415; 82784; 82785; 84155; 84165; 85009; 86334

== ENCOUNTER → 2020-01-06 09:05 | Outpatient (CLI) | payer OTHER, MEDICAID, SELFPAY ==
[2020-01-06 09:33] LABS: Add Manual Diff / Slide Review NO; Basophils Absolute Auto 100 /uL (0-100); Basophils Percent Auto 1.9 % (0-2); Eosinophils Absolute Auto 500 /uL (0-450); Eosinophils Percent Auto 10.8 % (2-4); Hematocrit 39.3 % (36-46); Hemoglobin 13.6 g/dL (12.0-16.0); Lymphocytes Absolute Auto 1800 /uL (1100-4500); Lymphocytes Percent Auto 43.8 % (25-40); Mean Corpuscular HGB Conc 34.7 % (30-36); Mean Corpuscular Hemoglobin 32.3 PG (26-34); Mean Corpuscular Volume 92.9 fL (80-100); Monocytes Absolute Auto 400 /uL (0-900); Monocytes Percent Auto 8.9 % (3-14); Neutrophils Absolute Auto 1400 /uL (1500-7000); Neutrophils Percent Auto 34.6 % (50-75); Platelet Count 196 X10^3/uL (150-400); Red Blood Cell Count 4.23 X10^6/uL (4.0-5.2); Red Cell Distribution Width 13.4 % (11.6-14.8); White Blood Cell Count 4.2 X10^3/uL (4.5-11.0)
[2020-01-07 15:36] LABS: Fecal Immunochemical Test Negative (Negative)
== END ==
PROVIDERS: PCP Nurse Practitioner; Referring Provider Internal Medicine Hematology & Oncology; Visit Provider Internal Medicine Hematology & Oncology
DX: Z12.11 Encounter for screening for malignant neoplasm of colon (principal); D72.1 Eosinophilia
CPT/HCPCS: 36415; 82274; 85025

== ENCOUNTER → 2020-02-09 11:29 | Oncology outpatient (ONC) | payer OTHER, MEDICAID, SELFPAY ==
--- NOTE | 2019-12-08 14:53 | P.CONONC_ITS ---
History of Present Illness - Data of Consult Patient: new to practice Consult date: 12/08/19 Requesting Physician: Alicia Rai PA-C Primary Care Provider: Alicia Rai PA-C - Consult Narrative Reason for consult: Eosinophilia Narrative: Bridgette Rich is a 59 year old female. She was referred here for evaluation of eosinophilia. Patient said that she moved to [place] about 10 years ago (2009). Two years later (2011), patient started to have winter headache. Patient said that the headache started June and usually ended October of the next year. But for the current year, the headache lasted until November. Patient has been getting laboratory tests almost every year. She said she has not been aware of any eosinophilia until recently when she saw Alicia Rai PA-C in October of 2019. Laboratory tests 10/15/2019 showed WBC 4.2, hemoglobin 13.8, hematocrit 40.4, MCV 94.7, platelets 183, ANC 1.3, eosinophils 11.0%. Repeat test on 11/14/2019 showed WBC 3.9, eosinophil 11.4%. Therefore patient was referred to Hematology and immunology for further evaluation. Patient herself said that upon reviewing of her lab results for the past 4 years, patient said s he has been having eosinophils. Clinically, other than the morning pounding sensation at the bridge of nose, she does not have any other symptoms. No fever. She always has running nose due to allergies. She denies shortness of breath. She denies no rashes. She denies asthma. She reports no abd pain, except occasional bloating of abdomen. She reports no diarrhea. She reports no bone pain. She lost 25 lb in 2018, and then gained 5 lbs back. Of note, two cousins of her mother have history of Mediterranean anemia. Home Medications and Allergies Home Medications Medication Instructions Recorded Confirmed Type estradiol 2 mg tablet 1 mg PO DAILY 12/24/18 11/17/19 History medroxyprogesterone 2.5 mg tablet 1.25 mg PO DAILY 12/24/18 11/17/19 History zolpidem 5 mg tablet 5 mg PO BEDTIME PRN 12/24/18 11/17/19 History celecoxib 200 mg capsule 200 mg PO DAILY PRN #30 cap 11/17/19 11/17/19 Rx montelukast [Singulair] 10 mg PO DAILY 12/08/19 12/08/19 History Allergies Allergy/AdvReac Type Severity Reaction Status Date / Time levofloxacin AdvReac Vomiting Verified 11/17/19 10:34 Medical History - Medical, Surgical, Family History Medical History: Medical History (Last Updated 12/08/19 @ 15:09 by Marsha Joseph MD) Cervical spondylosis with radiculopathy CTS (carpal tunnel syndrome) Eosinophilia Herniated nucleus pulposus, C5-6 left Interdigital neuroma of left foot Lumbar scoliosis Lumbosacral spondylosis with radiculopathy Migraine-cluster headache syndrome Occipital neuralgia Surgical History: Surgical History (Last Updated 12/08/19 @ 15:09 by Marsha Joseph MD) H/O foot surgery Family History: Family History (Last Reviewed 11/17/19 @ 11:15 by Quang Elmore DO) Father Lung cancer Mother Myelodysplastic syndrome Family/Other Hypertension Multiple sclerosis - Social History Smoking Status: Never smoker Substance Use Type: does not use Alcohol Intake: never Review of Systems All systems PM: reviewed and no additional remarkable complaints except as stated (those mentioned in HPI.) Exam Narrative: ECOG 1 Constitutional: WDWN, well nourished, and well groomed. NAD. Pleasant and cooperative. HEENT: NCAT, EOMI, PERRLA, anicteric sclera. Oral mucosa clean, no erythema, no ulcers noted on the oral mucosa, no enlargement of tonsils, and no pharynx secretions noted. Neck: Supple and symmetrical. No palpable thyromegaly or lymphadenopathy. No palpable masses. Respiratory: No use of accessory muscles, CTAB, no wheezes. Cardiovascular: RRR, S1 and S2 normal, no M/G/R. No edema of lower extremities. Abdomen: Soft, NTND, no palpable hepatosplenomegaly, no hernia. Lymphatic: no palpable palpable lymph nodes in the neck, axillae, or groins. Musculoskeletal: normal gait and station Skin: no rashes, lesions, or ulcers, no induration, or sub cutaneous nodules. Neurological: AOx3, CN II-XII grossly intact. No focal motor or sensory deficit. Psychiatric: Normal judgment and insight, AOx3, normal memory (recent and remote), normal mood and affect. Results - Labs Laboratory Last Values WBC 5.6 X10^3/uL (4.5-11.0) 12/08/19 15:35 RBC 4.21 X10^6/uL (4.0-5.2) 12/08/19 15:35 Hgb 13.3 g/dL (12.0-16.0) 12/08/19 15:35 Hct 39.5 % (36-46) 12/08/19 15:35 MCV 93.9 fL (80-100) 12/08/19 15:35 MCH 31.7 PG (26-34) 12/08/19 15:35 MCHC 33.8 % (30-36) 12/08/19 15:35 RDW 13.1 % (11.6-14.8) 12/08/19 15:35 Plt Count 199 X10^3/uL (150-400) 12/08/19 15:35 Neut % (Auto) 50.0 % (50-75) 12/08/19 15:35 Lymph % (Auto) 33.7 % (25-40) 12/08/19 15:35 [place] % (Auto) 8.3 % (3-14) 12/08/19 15:35 Eos % (Auto) 5.3 % (2-4) H 12/08/19 15:35 Baso % (Auto) 2.7 % (0-2) H 12/08/19 15:35 Neut # (Auto) 2800 /uL (3508-0945) 12/08/19 15:35 Lymph # (Auto) 1900 /uL (2050-9294) 12/08/19 15:35 [place] # (Auto) 500 /uL (0-900) 12/08/19 15:35 Eos # (Auto) 300 /uL (0-450) 12/08/19 15:35 Baso # (Auto) 200 /uL (0-100) H 12/08/19 15:35 - Imaging Additional studies: Procedures Colonoscopy (08/11/13) Laryngoscopy and other tracheoscopy (11/08/11) Assessment and Plan (1) Eosinophilia Overview: 59-year-old female with recurrent chronic winter headache now was identified to have mild eosinophilia. Assessment: I explained to the patient that eosinophilia usually is associated with allergy and parasite infection etc. She has been having these problems according to patient for the last couple of years. I do not think there is any evidence to suggest underlying hematological disorder. I talked with the patient that I will monitor the CBC once a month for about 3 months. Based on the trend of changes, we will discuss about further evaluations including possibly bone marrow aspiration and biopsy. Patient voiced understanding. Plan: CBC monthly x 3 months RTC in 3 months, CBC, CMP
[2019-12-08 15:50] LABS: Add Manual Diff / Slide Review NO; Basophils Absolute Auto 200 /uL (0-100); Basophils Percent Auto 2.7 % (0-2); Eosinophils Absolute Auto 300 /uL (0-450); Eosinophils Percent Auto 5.3 % (2-4); Hematocrit 39.5 % (36-46); Hemoglobin 13.3 g/dL (12.0-16.0); Lymphocytes Absolute Auto 1900 /uL (1100-4500); Lymphocytes Percent Auto 33.7 % (25-40); Mean Corpuscular HGB Conc 33.8 % (30-36); Mean Corpuscular Hemoglobin 31.7 PG (26-34); Mean Corpuscular Volume 93.9 fL (80-100); Monocytes Absolute Auto 500 /uL (0-900); Monocytes Percent Auto 8.3 % (3-14); Neutrophils Absolute Auto 2800 /uL (1500-7000); Platelet Count 199 X10^3/uL (150-400); Red Blood Cell Count 4.21 X10^6/uL (4.0-5.2); Red Cell Distribution Width 13.1 % (11.6-14.8); White Blood Cell Count 5.6 X10^3/uL (4.5-11.0)
[2020-02-09 12:16] LABS: Add Manual Diff / Slide Review NO; Basophils Absolute Auto 100 /uL (0-100); Basophils Percent Auto 1.8 % (0-2); Eosinophils Absolute Auto 300 /uL (0-450); Eosinophils Percent Auto 6.7 % (2-4); Hemoglobin 13.6 g/dL (12.0-16.0); Lymphocytes Absolute Auto 1700 /uL (1100-4500); Lymphocytes Percent Auto 34.8 % (25-40); Mean Corpuscular Hemoglobin 31.8 PG (26-34); Mean Corpuscular Volume 93.7 fL (80-100); Monocytes Absolute Auto 400 /uL (0-900); Monocytes Percent Auto 7.9 % (3-14); Neutrophils Absolute Auto 2400 /uL (1500-7000); Neutrophils Percent Auto 48.8 % (50-75); Platelet Count 190 X10^3/uL (150-400); Red Blood Cell Count 4.26 X10^6/uL (4.0-5.2)
[2020-02-09 12:27] LABS: Alanine Aminotransferase 16 IU/L (<35); Albumin 4.6 g/dL (3.5-5.0); Albumin Globulin Ratio 1.4 (1.0-2.8); Alkaline Phosphatase 35 U/L (38-126); Aspartate Aminotransferase 28 IU/L (14-36); BUN Creatinine Ratio 22.9 (6-22); Bilirubin Total 0.5 mg/dL (0.2-1.3); Blood Urea Nitrogen 16 mg/dL (7-17); Carbon Dioxide 28 mmol/L (22-32); Chloride 106 mmol/L (98-107); Estimated Glomerular Filt Rate > 60.0 mL/min (>60); Globulin 3.4 g/dL (1.7-4.1); Glucose 86 mg/dL (70-100); HEMOLYSIS < 15 (0-50); Sodium 140 mmol/L (137-145)
--- NOTE | 2020-03-01 10:44 | ONC.SCHED ---
Had to cancel 03/02/2020 appointment as provider not enrolled in patient's insurance. Patient requesting triage provide lab results as well as reviewing lab results with her primary, Stephie Vasquez.
== END ==
PROVIDERS: PCP Internal Medicine; Referring Provider Internal Medicine; Visit Provider Internal Medicine Hematology & Oncology
DX: D72.1 Eosinophilia (principal); G44.89 Other headache syndrome
CPT/HCPCS: 36415; 80053; 85025; 99204; 99214

== ENCOUNTER → 2020-03-08 11:50 | Outpatient (CLI) | payer OTHER, MEDICAID, SELFPAY ==
[2020-03-09 15:34] LABS: COVID19 Sendout Not Detected (Not Detect)
== END ==
PROVIDERS: PCP Nurse Practitioner; Visit Provider Physician Assistant
DX: Z01.812 Encounter for preprocedural laboratory examination (principal)
CPT/HCPCS: 87635

== ENCOUNTER 2020-03-11 08:56 | Outpatient (CLI) | payer OTHER, MEDICAID, SELFPAY ==
[2020-03-11] VITALS (9 sets, daily range): BP systolic 121–149; BP diastolic 66–100; PULSE 57–71; RESP 13–16; TEMP 36.3; O2SAT 98–100
--- NOTE | 2020-03-11 08:56 | DI.RAD.S_ITS ---
PROCEDURE: PAIN C/T FACET INJ/BLK 1ST L INDICATIONS: SPINAL STENOSIS FINDINGS: Fluoroscopic spot filming was performed to verify placement of spinal needles at the C4-C5, C5-C6, and C6-C7 level(s), as labeled on the films. Appropriate location(s) of the needle tip(s) was confirmed by injection of iodinated contrast. IMPRESSION: Intraprocedural examination within normal limits. Dictated by: Aly Hermosillo M.D. on 03/11/2020 at 10:11 Approved by: Aly Hermosillo M.D. on 03/11/2020 at 10:11
[2020-03-11] MEDS: fentaNYL 100 MCG/2 ML INJ 50 MCG IV (09:58)
[2020-03-11] MEDS: MIDAZOLAM 5 MG/5 ML VIAL IV (09:58)
[2020-03-11] MEDS: BUPIVACAINE 0.5% (PF) VIAL 5 ML INJ (10:02)
[2020-03-11] MEDS: IOPAMIDOL 15 ML VIAL 3 ML INJ (10:02)
[2020-03-11] MEDS: DEXAMETHASONE 10 MG/ML VIAL 30 MG INJ (10:02)
--- NOTE | 2020-03-11 10:18 | P.PCN_ITS ---
Date/Time/Diagnoses Date of procedure: 03/11/20 Time of procedure: 10:18 Pre-procedure diagnosis: 1. FACET ARTHROPATHY 2. AXIAL NECK PAIN Post-procedure diagnosis: same Procedure Notes Procedure: 1. FLUOROSCOPICALLY GUIDED, CONTRAST-CONTROLLED LEFT C4/5, C5/6 AND C6/7 FACET JOINT INJECTIONS WITH CONSCIOUS SEDATION. Indications: Bridgette is referred by MANAV Vasquez for treatment of Axial Neck Pain Physician: Quang Elmore Total Fluoroscopy time (seconds): 12 Total sedation minutes: 24 Complications: none Procedure in detail & Post-procedure care: DESCRIPTION OF PROCEDURE Fluoroscopically guided, contrast-controlled left C4/5, C5/6 and C6/7 facet joint injections with conscious sedation. Following review of allergy and review of potential side effects and complications, including, but not necessarily limited to, infection, allergic reaction, local tissue breakdown, stroke, temporary or permanent nerve injury and paralysis, the patient indicated that the patient understood and agreed to proceed. An informed consent document was signed by the patient, witnessed by a nurse, and placed in the patient's chart. Additionally, other treatment options including medications, modalities, and physical therapy were reviewed with the patient. After review of previous anaesthesic history and IV conscious sedation the patient was deemed safe to proceed with today?s procedure with IV conscious se dation as ASA class II designation. Safety time-out was performed to confirm patient ID, procedure to be performed and site of procedure. IV sedation was accomplished with a combination of 1mg of Versed and 50mcg of Fentanyl was administered by the RN after DO order, titrated to patient comfort during the course of the procedure while the patient remained responsive to all verbal commands In the prone position, following sterile prep and drape of the cervical spine region, the posterior aspect of the left C4/5, C5/6 and C6/7 facet joints were identified fluoroscopically. The skin was anesthetized via a 25-gauge 1.5-inch needle with 1% lidocaine solution into the corresponding facet joints. At this point, a 25-gauge 2.5-inch spinal needle was atraumatically introduced and advanced under fluoroscopic guidance into the corresponding facet joints. Following negative aspiration, injections of approximately 0.2-cc of Isovue 200 confirmed interarticular [address] without vascular uptake. At this point, a total of 1 cc including 0.5cc or 5mg of dexamethasone combined with 0.5cc of 1% lidocaine solution was injected without complication into each of the corresponding facet joints. The procedure tolerated the procedure well without signs or symptoms of complications prior to transfer to the recovery area continued monitoring without incident. The patient was then transferred to the recovery area where they were observed for an appropriate period of time after the injection. The patient reported a VAS score of 7 prior to the procedure and a post- procedure VAS of 0. POST OP INSTRUCTIONS They were provided a Pain Log to continue to record their response to the target-specific procedure prior to their follow-up visit with their referring p hysician. Additionally, specific post-injection care instructions and a contact number to our office were provided if concerns arise regarding possible complications associated with the procedure are suspected.
--- NOTE | 2020-03-11 11:11 | DI.RAD.S_ITS ---
PROCEDURE: XR KNEE RT 3V INDICATIONS: knee pain TECHNIQUE: 3 views of the knee were acquired. COMPARISON: None. FINDINGS: Bones: No fractures or dislocations. No suspicious bony lesions. Soft tissues: No joint effusion. No suspicious soft tissue calcifications. IMPRESSION: No acute osseous lesion. If symptoms and/or clinical suspicion for pathology persists, further assessment with repeat radiographs (7-10 days) or advanced imaging (e.g. CT, MRI or bone scan) may be helpful. Dictated by: Amrita Duke MD, PhD on 03/11/2020 at 15:12 Approved by: Amrita Duke MD, PhD on 03/11/2020 at 15:13
--- NOTE | 2020-03-11 11:11 | DI.RAD.S_ITS ---
PROCEDURE: XR HAND RT MIN 3V INDICATIONS: CMC joint pain TECHNIQUE: 3 views of the hand(s) acquired. COMPARISON: None. FINDINGS: Bones: No fractures or dislocations. Carpal bones are normally aligned. No suspicious bony lesions. Mild first CMC joint arthritis. Soft tissues: No suspicious soft tissue calcifications. IMPRESSION: Mild first CMC joint osteoarthritis. Dictated by: Amrita Duke MD, PhD on 03/11/2020 at 15:10 Approved by: Amrita Duke MD, PhD on 03/11/2020 at 15:12
--- NOTE | 2020-03-11 11:33 | PC.NURSE ---
1025: pt arrived to pre proc room via . Stable transfer from wc to chair. Resumed monitoring by GUANAKO Peraza
--- NOTE | 2020-03-11 16:18 | PC.NURSE ---
Pt tolerated procedure well. Versed and Fentanyl given my RN Lorie, all other meds administered by Dr. Elmore. VSS upon transfer to GUANAKO Peraza in post procedure room.
== END 2020-03-11 10:55 | disposition home or self-care (01) ==
PROVIDERS: PCP Nurse Practitioner; Referring Provider Physical Medicine & Rehabilitation; Visit Provider Physical Medicine & Rehabilitation
DX: M47.812 Spondylosis without myelopathy or radiculopathy, cervical region (principal); M54.2 Cervicalgia; M17.11 Unilateral primary osteoarthritis, right knee; M25.541 Pain in joints of right hand; M18.11 Unilateral primary osteoarthritis of first carpometacarpal joint, right hand; R51 Headache
CPT/HCPCS: 64490; 64491; 64492; 73130; 73562; 99152; J1100; J2250; J3010

== ENCOUNTER → 2020-05-06 12:55 | Outpatient (CLI) | payer OTHER, MEDICAID, SELFPAY ==
--- NOTE | 2020-05-06 | DI.MRI.S_ITS ---
PROCEDURE: MR ANGIO HEAD WO CON INDICATIONS: SKIN SENSATION DISTURBANCE TECHNIQUE: Noncontrast axial 3-D [id number] MR angiogram, with 3-dimensional maximum intensity projection (MIP) reformats of the internal carotid arteries and posterior circulation then performed. COMPARISON: None. FINDINGS: Image quality: Excellent. Anterior circulation: Intracranial internal carotid arteries demonstrate normal size and intraluminal flow signal. The flow within the paired anterior cerebral arteries is normal and symmetric. The flow within the middle cerebral arteries is normal and symmetric. The anterior communicating artery is seen. No stenoses, occlusions, or aneurysms. Posterior circulation: Visualized portions of the vertebral arteries demonstrate normal caliber, and join to form a normal appearing basilar artery. The flow within the posterior cerebral arteries is normal and symmetric. 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 No stenoses, occlusions, or aneurysms. IMPRESSION: Normal MR angiogram of the head. Dictated by: Amrita Duke MD, PhD on 05/06/2020 at 16:22 Approved by: Amrita Duke MD, PhD on 05/06/2020 at 16:30
--- NOTE | 2020-05-06 12:57 | DI.MRI.S_ITS ---
PROCEDURE: MR HEAD/BRAIN WO/W CON INDICATIONS: Cluster headache syndrome, unspecified, not intrac TECHNIQUE: Noncontrast axial T1 spin echo, axial T2 fast spin echo, sagittal and axial FLAIR, coronal T2 fast spin echo, axial gradient echo, axial diffusion and ADC through the brain. After the administration of contrast, axial and coronal 3D VIBE or T1 spin echo with fat saturation through the brain. COMPARISON: None. FINDINGS: Image quality: Excellent. CSF Spaces: Basal cisterns are patent. No extra-axial fluid collections. Ventricles are normal in size and shape. Brain: No midline shift. No intracranial bleeds or masses. No abnormal intracranial enhancement. The brainstem appears normal. Diffusion-weighted images demonstrate no acute ischemic insults. No chronic ischemic insults. Normal intravascular flow voids are present. Skull and face: Calvarial marrow is normal in signal. Orbits appear normal. Sinuses: Sinuses and mastoids appear clear. IMPRESSION: Numeral 1. No acute intracranial disease process. 2. No abnormal intracranial mass or mass effect. 3. No suspicious postcontrast enhancement. 4. No intracranial hemorrhage. Dictated by: Amrita Duke MD, PhD on 05/06/2020 at 16:02 Approved by: Amrita Duke MD, PhD on 05/06/2020 at 16:07
== END ==
PROVIDERS: PCP Nurse Practitioner; Referring Provider Psychiatry & Neurology Neurology; Visit Provider Psychiatry & Neurology Neurology
DX: G44.009 Cluster headache syndrome, unspecified, not intractable (principal); R20.9 Unspecified disturbances of skin sensation
CPT/HCPCS: 70544; 70553; A9579

== ENCOUNTER → 2020-05-24 16:08 | Outpatient (CLI) | payer OTHER, MEDICAID, SELFPAY ==
--- NOTE | 2020-05-24 | DI.US.S_ITS ---
PROCEDURE: US EXTREMITY NONVASC LOWER LT INDICATIONS: SOFT TISSUE MASS OF LEFT FOOT TECHNIQUE: Real-time scanning was performed of the plantar foot , with image documentation. COMPARISON: [facility], MR, MR FOREFOOT LT WO CON, 03/30/2015, 13:35. [facility], CR, XR FOOT 3 VIEWS WEIGHT BEARING LEFT, 05/04/2020, 10:35. FINDINGS: Scanning is performed at the areas of the plantar fascia on the left, with comparison views on the right. No masses are seen on these images. No ultrasound abnormalities are detected. IMPRESSION: Unremarkable ultrasound, without mass is detected. If it would be helpful for clinical management decision making, please consider a dedicated forefoot MRI (without and with contrast) for further evaluation (assuming that there is no contraindication). Dictated by: Aly Hermosillo M.D. on 05/24/2020 at 16:07 Approved by: Aly Hermosillo M.D. on 05/24/2020 at 16:09
== END ==
PROVIDERS: PCP Nurse Practitioner; Referring Provider Podiatrist; Visit Provider Podiatrist
DX: M79.89 Other specified soft tissue disorders (principal)
CPT/HCPCS: 76882

== ENCOUNTER → 2020-06-01 10:36 | Outpatient (CLI) | payer OTHER, MEDICAID, SELFPAY ==
--- NOTE | 2020-06-01 10:37 | DI.RAD.S_ITS ---
PROCEDURE: XR CERVICAL SPINE 4V OR 5V INDICATIONS: NECK PAIN TECHNIQUE: 5 views of the cervical spine acquired. COMPARISON: None. FINDINGS: Bones: No fractures or dislocations to the C7 level. There is moderate degenerative disease at C4-C5, C5-C6 and C6-C7, and mild degenerative disc disease at C3-C4. Mild bilateral facet arthropathy scattered in cervical spine. Oblique images demonstrate moderate C5-C6 and C6-C7 bony foraminal stenoses bilaterally. Soft tissues: No prevertebral soft tissue swelling. IMPRESSION: 1. Multilevel degenerative disease and facet disease in cervical spine. 2. Moderate foraminal stenosis at C5-C6 and C6-C7 bilaterally. Dictated by: Lavern Barbosa M.D. on 06/01/2020 at 14:11 Approved by: Lavern Barbosa M.D. on 06/01/2020 at 14:22
== END ==
PROVIDERS: PCP Nurse Practitioner; Referring Provider Physical Medicine & Rehabilitation; Visit Provider Physical Medicine & Rehabilitation
DX: M50.321 Other cervical disc degeneration at C4-C5 level (principal); M48.02 Spinal stenosis, cervical region; M47.812 Spondylosis without myelopathy or radiculopathy, cervical region; R51 Headache; M54.81 Occipital neuralgia
CPT/HCPCS: 72050

== ENCOUNTER → 2020-06-28 15:30 | Outpatient (CLI) | payer OTHER, MEDICAID, SELFPAY ==
[2020-06-30 02:13] LABS: COVID19 Sendout Not Detected (Not Detect)
== END ==
PROVIDERS: PCP Nurse Practitioner; Visit Provider Physician Assistant
DX: Z11.59 Encounter for screening for other viral diseases (principal)
CPT/HCPCS: 87635

== ENCOUNTER 2020-07-01 10:15 | Outpatient (CLI) | payer OTHER, MEDICAID, SELFPAY ==
[2020-07-01] VITALS (10 sets, daily range): BP systolic 127–186; BP diastolic 59–102; PULSE 56–70; RESP 11–18; O2SAT 93–100
--- NOTE | 2020-07-01 10:17 | DI.RAD.S_ITS ---
PROCEDURE: PAIN L/SI FACET INJ/BLK 1STL INDICATIONS: SPINAL STENOSIS COMPARISON: [facility], CR, XR CERVICAL SPINE 4V OR 5V, 06/01/2020, 10:29. FINDINGS: Fluoroscopic spot filming was performed to verify placement of spinal needles on the left at the C3-C4, C4-C5, and C5-C6 level(s), as labeled on the films. Appropriate location(s) of the needle tip(s) was confirmed by injection of iodinated contrast. IMPRESSION: Intraprocedural examination within normal limits. Dictated by: Aly Hermosillo M.D. on 07/01/2020 at 11:28 Approved by: Aly Hermosillo M.D. on 07/01/2020 at 11:29
[2020-07-01] MEDS: MIDAZOLAM 5 MG/5 ML VIAL IV (11:24)
[2020-07-01] MEDS: fentaNYL 100 MCG/2 ML INJ 50 MCG IV (11:24)
[2020-07-01] MEDS: BUPIVACAINE 0.5% (PF) VIAL 2 ML INJ (11:34)
[2020-07-01] MEDS: IOPAMIDOL 15 ML VIAL 3 ML INJ (11:34)
[2020-07-01] MEDS: DEXAMETHASONE 10 MG/ML VIAL 30 MG INJ (11:34)
--- NOTE | 2020-07-01 11:43 | P.PCN_ITS ---
Date/Time/Diagnoses Date of procedure: 07/01/20 Time of procedure: 11:44 Pre-procedure diagnosis: 1. FACET ARTHROPATHY 2. AXIAL NECK PAIN Post-procedure diagnosis: same Procedure Notes Procedure: 1. FLUOROSCOPICALLY GUIDED, CONTRAST-CONTROLLED LEFT C3/4, C4/5, C5/6 FACET JOINT INJECTIONS WITH CONSCIOUS SEDATION. Indications: Bridgette is referred by MANAV Vasquez for treatment of Axial Neck Pain Physician: Quang Elmore Total Fluoroscopy time (seconds): 12 Total sedation minutes: 15 Complications: none Procedure in detail & Post-procedure care: DESCRIPTION OF PROCEDURE Fluoroscopically guided, contrast-controlled left C3/4, or C4/5, C5/6 facet joint injections with conscious sedation. Following review of allergy and review of potential side effects and complications, including, but not necessarily limited to, infection, allergic reaction, local tissue breakdown, stroke, temporary or permanent nerve injury and paralysis, the patient indicated that the patient understood and agreed to proceed. An informed consent document was signed by the patient, witnessed by a nurse, and placed in the patient's chart. Additionally, other treatment options including medications, modalities, and physical therapy were reviewed with the patient. After review of previous anaesthesic history and IV conscious sedation the patient was deemed safe to proceed with today?s procedure with IV conscious sedation as ASA class II designation. Safety time-out was performed to confirm patient ID, procedure to be performed and site of procedure. IV sedation was accomplished with a combination of 1mg of Versed and 50mcg of Fentanyl was administered by the RN after DO order, titrated to patient comfort during the course of the procedure while the patient remained responsive to all verbal commands In the prone position, following sterile prep and drape of the cervical spine region, the posterior aspect of the right C3/4, C4/5, C5/6 facet joints were identified fluoroscopically. The skin was anesthetized via a 25-gauge 1.5-inch needle with 1% lidocaine solution into the corresponding facet joints. At this point, a 25-gauge 2.5-inch spinal needle was atraumatically introduced and advanced under fluoroscopic guidance into the corresponding facet joints. Following negative aspiration, injections of approximately 0.2-cc of Isovue 200 confirmed interarticular placement without vascular uptake. At this point, a total of 1cc including 0.5cc or 5mg of dexamethasone combined with 0.5cc of 1% lidocaine solution was injected without complication into each of the corresponding facet joints. The patient tolerated the procedure well without signs or symptoms of complications prior to transfer to the recovery area continued monitoring without incident. The patient was then transferred to the recovery area where they were observed for an appropriate period of time after the injection. The patient reported a VAS score of 7 prior to the procedure and a post- procedure VAS of 0. POST OP INSTRUCTIONS They were provided a Pain Log to continue to record their response to the target-specific procedure prior to their follow-up visit with their referring physician. Additionally, specific post-injection care instructions and a contact number to our office were provided if concerns arise regarding possible complications associated with the procedure are suspected.
--- NOTE | 2020-07-01 12:13 | PC.NURSE ---
Pt ambulated slow and steady prior to discharge. Alert and awake now. Tolerated cookies and coffee well. Used restroom independently. IV removed. ride home.
== END 2020-07-01 12:13 | disposition home or self-care (01) ==
PROVIDERS: PCP Nurse Practitioner; Referring Provider Physical Medicine & Rehabilitation; Visit Provider Physical Medicine & Rehabilitation
DX: M47.812 Spondylosis without myelopathy or radiculopathy, cervical region (principal); M54.2 Cervicalgia
CPT/HCPCS: 64491; 64492; 64493; 99152; J1100; J2250; J3010

== ENCOUNTER → 2020-11-22 10:45 | Outpatient (CLI) | payer OTHER, MEDICAID, SELFPAY ==
--- NOTE | 2020-11-22 10:47 | DI.MG.S_ITS ---
BILATERAL DIGITAL SCREENING MAMMOGRAM 3D/2D WITH CAD: 11/22/2020 CLINICAL: Routine screening. Comparison is made to exams dated: 10/12/2017 mammogram, 09/21/2015 mammogram, and 08/31/2014 mammogram - [facility]. The tissue of both breasts is heterogeneously dense. This may lower the sensitivity of mammography. Current study was also evaluated with a Computer Aided Detection (CAD) system. No significant masses, calcifications, or other findings are seen in either breast. There has been no significant interval change. IMPRESSION: NEGATIVE There is no mammographic evidence of malignancy. A 1 year screening mammogram is recommended. This exam was interpreted at Station ID: [id number]. NOTE: For mammograms, a report in lay terms will be sent to the patient. Approximately 15% of breast malignancies will not be visualized mammographically. In the management of a palpable breast mass, a negative mammogram must not discourage biopsy of a clinically suspicious lesion. Electronically Signed By: Josue Kenny acr/penrad:11/22/2020 12:52:05 letter sent: Normal Exam ACR BI-RADS Category 1: Negative [id number]
== END ==
PROVIDERS: PCP Nurse Practitioner; Referring Provider Nurse Practitioner; Visit Provider Nurse Practitioner
DX: Z12.31 Encounter for screening mammogram for malignant neoplasm of breast (principal)
CPT/HCPCS: 77063; 77067

== ENCOUNTER → 2020-12-14 11:12 | Outpatient (CLI) | payer OTHER, MEDICAID, SELFPAY | PROVIDERS: PCP Nurse Practitioner; Visit Provider Student in an Organized Health Care Education/Training Program | DX: N39.0 Urinary tract infection, site not specified (principal); N89.8 Other specified noninflammatory disorders of vagina | CPT/HCPCS: 87077; 87086; 87186; 87210 ==

== ENCOUNTER → 2020-12-18 10:17 | Outpatient (CLI) | payer OTHER, MEDICAID, SELFPAY ==
[2020-12-18 11:34] LABS: BUN Creatinine Ratio 17.6 (6-22); Blood Urea Nitrogen 12 mg/dL (7-17); Calcium 9.6 mg/dL (8.4-10.2); Carbon Dioxide 27 mmol/L (22-32); Chloride 102 mmol/L (98-107); Estimated Glomerular Filt Rate > 60.0 mL/min (>60); Glucose 119 mg/dL (70-100); HEMOLYSIS < 15 (0-50); Magnesium 1.9 mg/dL (1.6-2.3); Potassium 4.7 mmol/L (3.4-5.1); Sodium 137 mmol/L (137-145)
== END ==
PROVIDERS: PCP Nurse Practitioner; Referring Provider Nurse Practitioner; Visit Provider Nurse Practitioner
DX: E86.0 Dehydration (principal); N23 Unspecified renal colic
CPT/HCPCS: 36415; 80048; 83735

== ENCOUNTER → 2020-12-30 13:15 | Outpatient (CLI) | payer OTHER, MEDICAID, SELFPAY ==
[2020-12-30 13:31] LABS: Bacteria Urine None Seen; RBC Urine None Seen (0-5/HPF); WBC Urine None Seen (0-5/HPF)
[2020-12-30 14:28] LABS: Appearance Urine UA CLEAR; Bilirubin Urine UA NEGATIVE (NEGATIVE); Color Urine UA YELLOW; Glucose Urine UA NEGATIVE (Negative); Ketones Urine UA NEGATIVE (NEGATIVE); Leukocyte Esterase Urine UA NEGATIVE (NEGATIVE); Nitrite Urine UA NEGATIVE (Negative); Occult Blood Urine UA NEGATIVE (Negative); Protein Urine UA NEGATIVE (Negative); Urobilinogen Urine UA 0.2 E.U./dL (0.2)
[2020-12-30 14:33] LABS: Culture Indicated Urine Cult Not Indicated; Urine Comments Microscopic Normal
== END ==
PROVIDERS: PCP Nurse Practitioner; Referring Provider Nurse Practitioner; Visit Provider Nurse Practitioner
DX: N30.01 Acute cystitis with hematuria (principal)
CPT/HCPCS: 81001; 87086

== ENCOUNTER → 2021-01-29 16:58 | Outpatient (CLI) | payer OTHER, MEDICAID, SELFPAY | PROVIDERS: PCP Nurse Practitioner; Referring Provider Physician Assistant; Visit Provider Physician Assistant | DX: N34.3 Urethral syndrome, unspecified (principal); N89.8 Other specified noninflammatory disorders of vagina | CPT/HCPCS: 87086; 87210 ==

== ENCOUNTER → 2021-02-21 08:21 | Outpatient (CLI) | payer OTHER, MEDICAID, SELFPAY ==
[2021-02-21 09:20] LABS: Add Manual Diff / Slide Review NO; Basophils Absolute Auto 100 /uL (0-100); Basophils Percent Auto 2.7 % (0-2); Eosinophils Absolute Auto 400 /uL (0-450); Eosinophils Percent Auto 11.1 % (2-4); Hematocrit 40.8 % (36-46); Hemoglobin 13.5 g/dL (12.0-16.0); Lymphocytes Absolute Auto 1500 /uL (1100-4500); Mean Corpuscular HGB Conc 33.1 % (30-36); Mean Corpuscular Hemoglobin 30.5 PG (26-34); Mean Corpuscular Volume 92.1 fL (80-100); Monocytes Absolute Auto 300 /uL (0-900); Monocytes Percent Auto 9.1 % (3-14); Neutrophils Absolute Auto 1400 /uL (1500-7000); Neutrophils Percent Auto 36.1 % (50-75); Platelet Count 180 X10^3/uL (150-400); Red Blood Cell Count 4.43 X10^6/uL (4.0-5.2); Red Cell Distribution Width 13.6 % (11.6-14.8); White Blood Cell Count 3.8 X10^3/uL (4.5-11.0)
[2021-02-21 09:44] LABS: Alanine Aminotransferase 15 IU/L (<35); Albumin 4.3 g/dL (3.5-5.0); Albumin Globulin Ratio 1.4 (1.0-2.8); Alkaline Phosphatase 39 U/L (38-126); Aspartate Aminotransferase 27 IU/L (14-36); BUN Creatinine Ratio 21.8 (6-22); Bilirubin Total 0.6 mg/dL (0.2-1.3); Blood Urea Nitrogen 17 mg/dL (7-17); Calcium 9.9 mg/dL (8.4-10.2); Carbon Dioxide 31 mmol/L (22-32); Chloride 105 mmol/L (98-107); Cholesterol 212 mg/dL (140-199); Estimated Glomerular Filt Rate > 60.0 mL/min (>60); Globulin 3.1 g/dL (1.7-4.1); Glucose 93 mg/dL (70-100); HDL Cholesterol 84 mg/dL (40-60); HEMOLYSIS < 15 (0-50); LDL Cholesterol Calculated 112 mg/dL (<100); Potassium 4.6 mmol/L (3.4-5.1); Sodium 141 mmol/L (137-145); Total Protein 7.4 g/dL (6.3-8.2); Triglycerides 78 mg/dL (35-150)
[2021-02-21 10:17] LABS: Free T3, Triiodothyronine Free 3.34 pg/mL (2.77-5.27); Free T4, Direct Thyroxine 0.93 ng/dL (0.78-2.19)
[2021-02-21 10:32] LABS: Thyroid Stimulating Hormone 0.815 uIU/mL (0.47-4.68)
[2021-02-21 16:45] LABS: COVID19 -Nasal RAPID Negative (Negative)
== END ==
PROVIDERS: Physician Assistant; PCP Nurse Practitioner; Referring Provider Nurse Practitioner; Visit Provider Nurse Practitioner
DX: Z00.00 Encounter for general adult medical examination without abnormal findings (principal); Z01.812 Encounter for preprocedural laboratory examination; Z20.822 Contact with and (suspected) exposure to COVID-19
CPT/HCPCS: 36415; 80053; 80061; 84439; 84443; 84481; 85025; 87635

== ENCOUNTER 2021-02-22 08:57 | Outpatient (CLI) | payer OTHER, MEDICAID, SELFPAY ==
[2021-02-22] VITALS (7 sets, daily range): BP systolic 114–146; BP diastolic 82–91; PULSE 63–78; RESP 11–16; TEMP 37; O2SAT 97–100
--- NOTE | 2021-02-22 08:59 | DI.RAD.S_ITS ---
PROCEDURE: PAIN C/T FACET INJ/BLK 1ST L INDICATIONS: SPINAL STENOSIS COMPARISON: [facility], CR, XR CERVICAL SPINE 4V OR 5V, 06/01/2020, 10:29. FINDINGS: Fluoroscopic spot filming was performed to verify placement of spinal needles at the right C3-C4, C4-C5 and C5-C6 level(s), as labeled on the films. Appropriate location(s) of the needle tip(s) was confirmed by injection of iodinated contrast. IMPRESSION: Fluoroscopy for pain management. Dictated by: Lavern Barbosa M.D. on 02/22/2021 at 10:51 Approved by: Lavern Barbosa M.D. on 02/22/2021 at 10:51
[2021-02-22] MEDS: fentaNYL 100 MCG/2 ML INJ 50 MCG IV (09:40)
[2021-02-22] MEDS: MIDAZOLAM 5 MG/5 ML VIAL IV (09:40)
[2021-02-22] MEDS: BUPIVACAINE 0.25% (PF) VIAL 5 ML SUBCUT (09:43)
[2021-02-22] MEDS: IOPAMIDOL 15 ML VIAL 3 ML INJ (09:43)
[2021-02-22] MEDS: DEXAMETHASONE 10 MG/ML VIAL 30 MG INJ (09:43)
--- NOTE | 2021-02-22 09:58 | P.PCN_ITS ---
Date/Time/Diagnoses Date of procedure: 02/22/21 Time of procedure: 09:58 Pre-procedure diagnosis: 1. FACET ARTHROPATHY 2. AXIAL NECK PAIN Post-procedure diagnosis: same Procedure Notes Procedure: 1. FLUOROSCOPICALLY GUIDED, CONTRAST-CONTROLLED RIGHT C3/4, C4/5, C5/6 FACET JOINT INJECTIONS WITH CONSCIOUS SEDATION. Indications: Bridgette is referred by MANAV Vasquez for treatment of Axial Neck Pain Physician: Quang Elmore Total Fluoroscopy time (seconds): 11 Total sedation minutes: 13 Complications: none Procedure in detail & Post-procedure care: DESCRIPTION OF PROCEDURE Fluoroscopically guided, contrast-controlled right C3/4, C4/5, C5/6 facet joint injections with conscious sedation. Following review of allergy and review of potential side effects and complications, including, but not necessarily limited to, infection, allergic reaction, local tissue breakdown, stroke, temporary or permanent nerve injury and paralysis, the patient indicated that the patient understood and agreed to proceed. An informed consent document was signed by the patient, witnessed by a nurse, and placed in the patient's chart. Additionally, other treatment options including medications, modalities, and physical therapy were reviewed with the patient. After review of previous anaesthesic history and IV conscious sedation the patient was deemed safe to proceed with today?s procedure with IV conscious sedation as ASA class II designation. Safety time-out was performed to confirm patient ID, procedure to be performed and site of procedure. IV sedation was accomplished with a combination of 1mg of Versed and 50mcg of Fentanyl was administered by the RN after DO order, titrated to patient comfort during the course of the procedure while the patient remained responsive to all verbal commands In the prone position, following sterile prep and drape of the cervical spine region, the posterior aspect of the right C3/4, C4/5, C5/6 facet joints were identified fluoroscopically. The skin was anesthetized via a 25-gauge 1.5-inch needle with 1% lidocaine solution into the corresponding facet joints. At this point, a 25-gauge 2.5-inch spinal needle was atraumatically introduced and advanced under fluoroscopic guidance into the corresponding facet joints. Following negative aspiration, injections of approximately 0.2-cc of Isovue 200 confirmed interarticular placement without vascular uptake. At this point, a total of 1cc including 0.5 cc or 5mg of dexamethasone combined with 0.5cc of 1% lidocaine solution was injected without complication into each of the corresponding facet joints. The patient tolerated the procedure well without signs or symptoms of complications prior to transfer to the recovery area continued monitoring without incident. The patient was then transferred to the recovery area where they were observed for an appropriate period of time after the injection. The patient reported a VAS score of 7 prior to the procedure and a post- procedure VAS of 0. POST OP INSTRUCTIONS They were provided a Pain Log to continue to record their response to the target-specific procedure prior to their follow-up visit with their referring physician. Additionally, specific post-injection care instructions and a contact number to our office were provided if concerns arise regarding possible complications associated with the procedure are suspected.
== END 2021-02-22 10:15 | disposition home or self-care (01) ==
LOC: RAD 08:58
PROVIDERS: PCP Nurse Practitioner; Referring Provider Physical Medicine & Rehabilitation; Visit Provider Physical Medicine & Rehabilitation
DX: M47.812 Spondylosis without myelopathy or radiculopathy, cervical region (principal); M54.2 Cervicalgia
CPT/HCPCS: 64490; 64491; 64492; 99152; J1100; J2250; J3010

== ENCOUNTER → 2021-12-12 08:50 | Outpatient (CLI) | payer OTHER, MEDICAID, SELFPAY ==
[2021-12-12 09:52] LABS: Add Manual Diff / Slide Review NO; Basophils Absolute Auto 100 /uL (0-100); Basophils Percent Auto 2.9 % (0-2); Eosinophils Absolute Auto 500 /uL (0-450); Eosinophils Percent Auto 9.4 % (2-4); Hematocrit 38.8 % (36-46); Hemoglobin 12.9 g/dL (12.0-16.0); Lymphocytes Absolute Auto 1600 /uL (1100-4500); Lymphocytes Percent Auto 32.6 % (25-40); Mean Corpuscular HGB Conc 33.4 % (30-36); Mean Corpuscular Volume 92.9 fL (80-100); Monocytes Absolute Auto 500 /uL (0-900); Neutrophils Absolute Auto 2200 /uL (1500-7000); Neutrophils Percent Auto 45.1 % (50-75); Platelet Count 206 X10^3/uL (150-400); Red Blood Cell Count 4.17 X10^6/uL (4.0-5.2); Red Cell Distribution Width 13.7 % (11.6-14.8)
== END ==
PROVIDERS: PCP Nurse Practitioner; Referring Provider Nurse Practitioner; Visit Provider Nurse Practitioner
DX: D72.819 Decreased white blood cell count, unspecified (principal); M47.22 Other spondylosis with radiculopathy, cervical region; M17.11 Unilateral primary osteoarthritis, right knee
CPT/HCPCS: 36415; 85025; 99215

== ENCOUNTER → 2022-03-08 08:50 | Outpatient (CLI) | payer OTHER, MEDICAID, SELFPAY ==
--- NOTE | 2022-03-08 08:51 | DI.US.S_ITS ---
PROCEDURE: US EXTREMITY NONVASC LOWER RT INDICATIONS: Pain in right leg; Medial knee mass TECHNIQUE: Real-time scanning was performed of the right lower leg, with image documentation. COMPARISON: [facility], , EXTREMITY NONVASC LOWER LT, 05/24/2020, 16:36. FINDINGS: Ultrasound examination of right upper calf region at patient's reported area of palpable mass/pain shows no discrete soft tissue mass or fluid collection. IMPRESSION: No abnormality is seen in right lower leg to account for patient's symptoms. Dictated by: Kishan Valenzuela M.D. on 03/08/2022 at 16:24 Approved by: Kishan Valenzuela M.D. on 03/08/2022 at 20:11
== END ==
PROVIDERS: PCP Nurse Practitioner; Referring Provider Podiatrist; Visit Provider Podiatrist
DX: M79.604 Pain in right leg (principal); R22.41 Localized swelling, mass and lump, right lower limb
CPT/HCPCS: 76882

== ENCOUNTER → 2022-08-23 09:53 | Outpatient (CLI) | payer OTHER, MEDICAID, SELFPAY ==
[2022-08-23 10:51] LABS: Alanine Aminotransferase 20 IU/L (<35); Albumin 4.6 g/dL (3.5-5.0); Albumin Globulin Ratio 1.4 (1.0-2.8); Alkaline Phosphatase 46 U/L (38-126); Aspartate Aminotransferase 25 IU/L (14-36); BUN Creatinine Ratio 24.6 (6-22); Bilirubin Total 0.6 mg/dL (0.2-1.3); Blood Urea Nitrogen 17 mg/dL (7-17); Calcium 9.5 mg/dL (8.4-10.2); Carbon Dioxide 29 mmol/L (22-32); Chloride 100 mmol/L (98-107); Estimated Glomerular Filt Rate > 60 mL/min (>60); Globulin 3.3 g/dL (1.7-4.1); Glucose 84 mg/dL (80-110); HEMOLYSIS < 15 (0-50); Potassium 3.8 mmol/L (3.4-5.1); Sodium 139 mmol/L (137-145); Total Protein 7.9 g/dL (6.3-8.2)
[2022-08-23 11:05] LABS: Free T3, Triiodothyronine Free 3.13 pg/mL (2.77-5.27); Free T4, Direct Thyroxine 1.07 ng/dL (0.78-2.19); Vitamin D 25 Hydroxy (D3) 37.2 ng/mL (30.0-100.0)
[2022-08-23 11:18] LABS: Thyroid Stimulating Hormone 0.739 uIU/mL (0.47-4.68)
== END ==
PROVIDERS: PCP Family Medicine; Referring Provider Family Medicine; Visit Provider Family Medicine
DX: D72.819 Decreased white blood cell count, unspecified (principal); E55.9 Vitamin D deficiency, unspecified; E78.5 Hyperlipidemia, unspecified
CPT/HCPCS: 36415; 80053; 82306; 84439; 84443; 84481

== ENCOUNTER → 2022-09-18 07:51 | Outpatient (CLI) | payer OTHER, MEDICAID, SELFPAY ==
--- NOTE | 2022-09-18 07:55 | DI.RAD.S_ITS ---
PROCEDURE: XR KNEE LT 3V INDICATIONS: LEFT KNEE TECHNIQUE: 3 views of the knee were acquired. COMPARISON: [facility], CR, XR KNEE RT 3V, 03/11/2020, 11:05. FINDINGS: Bones: No fractures or dislocations. There are small intercondylar osteophytes. There is mild medial femorotibial compartment narrowing. No suspicious bony lesions. Soft tissues: No joint effusion. No suspicious soft tissue calcifications. IMPRESSION: Mild degenerative change. No acute radiographic findings. If pain persists, followup imaging in 5-7 days is recommended to exclude occult fracture. Dictated by: Kristel Bridges M.D. on 09/18/2022 at 8:40 Approved by: Kristel Bridges M.D. on 09/18/2022 at 8:40
--- NOTE | 2022-09-18 07:55 | DI.RAD.S_ITS ---
PROCEDURE: XR CERVICAL SPINE 4V OR 5V INDICATIONS: neck pain TECHNIQUE: 3 views of the cervical spine acquired. COMPARISON: [facility], CR, XR CERVICAL SPINE 4V OR 5V, 06/01/2020, 10:29. FINDINGS: Bones: No fractures or dislocations to the C7-T1 level. Oblique images demonstrate no bony foraminal stenoses. There is grade 1 C3 on C4 retrolisthesis which stable when compared with the prior study dated June 01, 2020. Degenerative changes including intervertebral disc space narrowing, osteophytosis and subchondral cystic changes also stable. Soft tissues: No prevertebral soft tissue swelling. IMPRESSION: Stable degenerative change and trace C3-4 retrolisthesis. Dictated by: Kristel Bridges M.D. on 09/18/2022 at 8:41 Approved by: Kristel Bridges M.D. on 09/18/2022 at 8:42
== END ==
PROVIDERS: PCP Family Medicine; Referring Provider Physical Medicine & Rehabilitation; Visit Provider Physical Medicine & Rehabilitation
DX: S83.105A Unspecified dislocation of left knee, initial encounter (principal); M47.22 Other spondylosis with radiculopathy, cervical region; M54.81 Occipital neuralgia; M17.11 Unilateral primary osteoarthritis, right knee; X58.XXXA Exposure to other specified factors, initial encounter
CPT/HCPCS: 72050; 73562; 99214

== ENCOUNTER → 2023-02-07 07:06 | Outpatient (CLI) | payer OTHER, MEDICAID, SELFPAY ==
[2023-02-08 12:36] LABS: Interpretation Negative (Negative)
== END ==
PROVIDERS: PCP Family Medicine; Referring Provider Family Medicine; Visit Provider Family Medicine
DX: R14.0 Abdominal distension (gaseous) (principal)
CPT/HCPCS: 83013

== ENCOUNTER → 2023-02-13 11:01 | Outpatient (CLI) | payer OTHER, MEDICAID, SELFPAY ==
[2023-02-13 11:46] LABS: Alanine Aminotransferase 19 IU/L (<35); Albumin 4.3 g/dL (3.5-5.0); Albumin Globulin Ratio 1.5 (1.0-2.8); Alkaline Phosphatase 49 U/L (38-126); Aspartate Aminotransferase 23 IU/L (14-36); BUN Creatinine Ratio 18.1 (6-22); Bilirubin Total 0.3 mg/dL (0.2-1.3); Blood Urea Nitrogen 13 mg/dL (7-17); Calcium 9.4 mg/dL (8.4-10.2); Carbon Dioxide 31 mmol/L (22-32); Chloride 102 mmol/L (98-107); Estimated Glomerular Filt Rate > 60 mL/min (>60); Globulin 2.9 g/dL (1.7-4.1); Glucose 99 mg/dL (80-110); HEMOLYSIS < 15 (0-50); Potassium 3.9 mmol/L (3.4-5.1); Sodium 140 mmol/L (137-145); Total Protein 7.2 g/dL (6.3-8.2)
== END ==
PROVIDERS: PCP Family Medicine; Referring Provider Family Medicine; Visit Provider Family Medicine
DX: Z01.812 Encounter for preprocedural laboratory examination (principal)
CPT/HCPCS: 36415; 80053

== ENCOUNTER → 2023-02-14 08:34 | Outpatient (CLI) | payer OTHER, MEDICAID, SELFPAY ==
--- NOTE | 2023-02-14 08:36 | DI.CT.S_ITS ---
PROCEDURE: CT ABDOMEN PELVIS W CON INDICATIONS: Abdomen/pelvic pain TECHNIQUE: After the administration of oral and intravenous contrast, axial sections were acquired from the lung bases to the pubic symphysis. Coronal and sagittal reformats were performed. For radiation dose reduction, the following was used: automated exposure control, adjustment of mA and/or kV according to patient size. COMPARISON:[facility], CT, CT ABDOMEN PELVIS W CON, 11/10/2018, 18:46. FINDINGS: Image quality: Excellent. Lung bases: Unremarkable. Heart: No significant findings. ABDOMEN: Liver: Unremarkable. Gallbladder: Unremarkable. Biliary ducts: Unremarkable. Pancreas: Unremarkable. Spleen: Unremarkable. Adrenal Glands: Unremarkable. Kidneys and Ureters: Unremarkable. Stomach and Bowel: Stomach, small bowel loops, and colon are unremarkable. Fecal debris within the small bowel. Peritoneum: No abnormal intraperitoneal fluid. No free air. Ventral Wall: No hernia. Abdominal Nodes: No retroperitoneal or mesenteric adenopathy by size criteria. Vessels: Aorta and inferior vena cava are normal in size. PELVIS: Pelvic Organs: Tubal ligation. Bladder: Unremarkable. Pelvic Nodes: No enlarged lymph nodes. Miscellaneous: No inguinal hernias are seen. Bones: Multilevel degenerative disc disease of the lumbar spine, most prominent at L5-S1 and L2-3. IMPRESSION: Fecal debris within the small-bowel, usually indicating small intestinal bacterial overgrowth versus slow transit. Dictated by: Karan Calderón M.D. on 02/14/2023 at 14:28 Approved by: Karan Calderón M.D. on 02/14/2023 at 14:33
== END ==
PROVIDERS: PCP Family Medicine; Referring Provider Family Medicine; Visit Provider Family Medicine
DX: R14.0 Abdominal distension (gaseous) (principal); K59.00 Constipation, unspecified; D25.9 Leiomyoma of uterus, unspecified; R10.9 Unspecified abdominal pain
CPT/HCPCS: 74177; Q9967

== ENCOUNTER → 2023-07-24 14:12 | Outpatient (CLI) | payer OTHER, MEDICAID, SELFPAY ==
--- NOTE | 2023-07-24 14:14 | DI.RAD.S_ITS ---
PROCEDURE: XR HIP W PEL IF DONE RT 2V INDICATIONS: chronic anterior hip pain TECHNIQUE: AP pelvis with lateral view(s) of the right hip(s). COMPARISON: None. FINDINGS: Bones: No fractures or dislocations. Pelvic ring appears intact. No suspicious bony lesions. Mild right hip degenerative change. Soft tissues: The visualized bowel gas pattern is normal. No suspicious soft tissue calcifications. IMPRESSION: Mild right hip degenerative change. Dictated by: Kelton Naranjo M.D. on 07/24/2023 at 16:11 Approved by: Kelton Naranjo M.D. on 07/24/2023 at 16:12
== END ==
PROVIDERS: PCP Family Medicine; Referring Provider Family Medicine; Visit Provider Family Medicine
DX: M25.551 Pain in right hip (principal)
CPT/HCPCS: 73502

== ENCOUNTER → 2023-08-31 07:38 | Outpatient (CLI) | payer OTHER, MEDICAID, SELFPAY ==
[2023-08-31 08:30] LABS: Hemoglobin A1C% w Est Avg Glu 5.5 % (4.0-6.0)
[2023-08-31 08:43] LABS: Add Manual Diff / Slide Review NO; Basophils Absolute Auto 100 /uL (0-100); Eosinophils Absolute Auto 400 /uL (0-450); Eosinophils Percent Auto 10.2 % (2-4); Hematocrit 39.1 % (36-46); Hemoglobin 13.3 g/dL (12.0-16.0); Lymphocytes Absolute Auto 1800 /uL (1100-4500); Lymphocytes Percent Auto 40.9 % (25-40); Monocytes Absolute Auto 300 /uL (0-900); Neutrophils Absolute Auto 1700 /uL (1500-7000); Neutrophils Percent Auto 38.9 % (50-75); Platelet Count 202 X10^3/uL (150-400); Red Cell Distribution Width 13.5 % (11.6-14.8); White Blood Cell Count 4.4 X10^3/uL (4.5-11.0)
[2023-08-31 08:50] LABS: Alanine Aminotransferase 15 IU/L (<35); Albumin Globulin Ratio 1.4 (1.0-2.8); Alkaline Phosphatase 42 U/L (38-126); Aspartate Aminotransferase 22 IU/L (14-36); BUN Creatinine Ratio 26.1 (6-22); Bilirubin Total 0.6 mg/dL (0.2-1.3); Blood Urea Nitrogen 18 mg/dL (7-17); Calcium 9.7 mg/dL (8.4-10.2); Carbon Dioxide 29 mmol/L (22-32); Chloride 104 mmol/L (98-107); Cholesterol 216 mg/dL (140-199); Estimated Glomerular Filt Rate > 60 mL/min (>60); Globulin 2.9 g/dL (1.7-4.1); Glucose 94 mg/dL (80-110); HDL Cholesterol 75 mg/dL (40-60); HEMOLYSIS < 15 (0-50); LDL Cholesterol Calculated 130 mg/dL (<100); Potassium 4.3 mmol/L (3.4-5.1); Sodium 139 mmol/L (137-145); Total Protein 6.9 g/dL (6.3-8.2); Triglycerides 55 mg/dL (35-150)
[2023-08-31 08:53] LABS: High Sensitivity CRP - Cardiac 0.7 mg/L (1.0-3.0)
[2023-08-31 09:24] LABS: TSH w/ Reflex to FT4 1.17 uIU/mL (0.47-4.68)
== END ==
PROVIDERS: PCP Family Medicine; Referring Provider Family Medicine; Visit Provider Family Medicine
DX: D72.819 Decreased white blood cell count, unspecified (principal); E78.5 Hyperlipidemia, unspecified; R73.9 Hyperglycemia, unspecified; R53.83 Other fatigue; D46.9 Myelodysplastic syndrome, unspecified
CPT/HCPCS: 36415; 80053; 80061; 83036; 84443; 85025; 86140

== ENCOUNTER → 2024-08-21 09:53 | Outpatient (CLI) | payer BC, SELFPAY ==
[2024-08-21 10:35] LABS: Influenza A - CEPHEID Flu A NEGATIVE (NEGATIVE); Influenza B - CEPHEID Flu B NEGATIVE (NEGATIVE); Respiratory Syncytial Virus Negative (Negative)
[2024-08-21 10:36] LABS: COVID-19 CEPHEID 4-PLEX PCR POSITIVE (Negative)
== END ==
PROVIDERS: PCP Family Medicine; Visit Provider Student in an Organized Health Care Education/Training Program
DX: R50.9 Fever, unspecified (principal)
CPT/HCPCS: 0241U

== ENCOUNTER → 2025-05-13 18:27 | Outpatient (CLI) | payer SELFPAY ==
[2025-05-13 19:30] LABS: Influenza A - CEPHEID Flu A NEGATIVE (NEGATIVE); Influenza B - CEPHEID Flu B NEGATIVE (NEGATIVE)
[2025-05-13 19:35] LABS: COVID-19 CEPHEID 4-PLEX PCR POSITIVE (Negative)
== END ==
PROVIDERS: PCP Family Medicine; Visit Provider Chiropractor
DX: R05.9 Cough, unspecified (principal)
CPT/HCPCS: 87637